=== PATIENT | female | born 1970 | race Caucasian/White ===

== ENCOUNTER 2018-06-11 19:37 | Inpatient (IN) | payer SELFPAY ==
--- NOTE | 2018-06-11 20:01 | ER Document Report ---
ED Medical Screen (RME) - General Chief Complaint: Abscess Stated Complaint: POSSIBLE ABSCESS Time Seen by Provider: 06/11/18 19:59 Mode of Arrival: Ambulatory Information source: Patient TRAVEL OUTSIDE OF THE [place] IN LAST 30 DAYS: No - HPI Patient complains to provider of: R arm swelling Onset: Other - Pt. with 2-3 day h/o R arm redness and swelling. Thinks she may have gotten bitten by an insect - Related Data Allergies/Adverse Reactions: No Known Allergies Allergy (Unverified 02/12/16 12:23) Past Medical History Musculoskeltal Medical History: Reports Hx Musculoskeletal Trauma - 3x left shoulder dislocation Traumatic Medical History: Reports: Hx Fractures - WRIST Past Surgical History: Reports: Hx Orthopedic Surgery - L wrist, Hx Tonsillectomy - Immunizations Immunizations up to date: Yes Hx Diphtheria, Pertussis, Tetanus Vaccination: Yes Physical Exam - Vital signs Vitals: Temp Pulse Resp BP Pulse Ox 98.7 F 124 H 20 111/78 99 06/11/18 19:47 06/11/18 19:47 06/11/18 19:47 06/11/18 19:47 06/11/18 19:47 Course - Vital Signs Vital signs: Temp Pulse Resp BP Pulse Ox 98.7 F 124 H 20 111/78 99 06/11/18 19:47 06/11/18 19:47 06/11/18 19:47 06/11/18 19:47 06/11/18 19:47
[2018-06-11] MEDS ORDERED: VANCOMYCIN HCL INJ 1000 MG VIAL IV ONE (21:10)
[2018-06-11] MEDS ORDERED: CEFTRIAXONE INJ 1000 MG VIAL IV ONE (21:10)
[2018-06-11] MEDS ORDERED: RINGERS SOLUTION,LACTATED 2,000 ML IV ONE (21:10)
[2018-06-11] MEDS ORDERED: KETAMINE HCL INJ 500 MG/10 ML VIAL IV ONE ×2 (21:13→22:55)
[2018-06-11] MEDS ORDERED: ONDANSETRON HCL INJ/PF 4 MG/2 ML SDV IV ONE (21:13)
--- NOTE | 2018-06-11 21:15 | ER Document Report ---
ED General - General Chief Complaint: Abscess Stated Complaint: POSSIBLE ABSCESS Time Seen by Provider: 06/11/18 19:59 Mode of Arrival: Ambulatory Notes: Patient is a 48-year-old female with a past history of chronic pain, chronic anxiety, presents with 4 days of progressively worsening pain and swelling to her right antecubital fossa with spreading erythema both distally approximately from the site. States that she leave the area started as a bug bite or something else and has been worsening since that time. She notes a severe, throbbing, constant pain to the area. Nothing improves the pain, touching the area dramatically worsens the pain. She has not seen her primary doctor regarding today's concerns. No history of similar symptoms in the past. Notes subjective fever at home but has not recorded a temperature. Denies IV drug use. TRAVEL OUTSIDE OF THE [place] IN LAST 30 DAYS: No - Related Data Allergies/Adverse Reactions: No Known Allergies Allergy (Unverified 02/12/16 12:23) Past Medical History - General Information source: Patient - Social History Smoking Status: Current Every Day Smoker Frequency of alcohol use: Rare Drug Abuse: Marijuana Lives with: Alone Family History: Reviewed & Not Pertinent Patient has suicidal ideation: No Patient has homicidal ideation: No Renal/ Medical History: Denies: Hx Peritoneal Dialysis Musculoskeletal Medical History: Reports Hx Musculoskeletal Trauma - 3x left shoulder dislocation Traumatic Medical History: Reports: Hx Fractures - WRIST Past Surgical History: Reports: Hx Orthopedic Surgery - L wrist, Hx Tonsillectomy - Immunizations Immunizations up to date: Yes Hx Diphtheria, Pertussis, Tetanus Vaccination: Yes Review of Systems - Review of Systems Notes: Constitutional: Negative for fever. HENT: Negative for sore throat. Eyes: Negative for visual changes. Cardiovascular: Negative for chest pain. Respiratory: Negative for shortness of breath. Gastrointestinal: Negative for abdominal pain, vomiting or diarrhea. Genitourinary: Negative for dysuria. Musculoskeletal: Negative for back pain. Skin: Positive for abscess and cellulitis of the right upper extremity Neurological: Negative for headaches, weakness or numbness. 10 point ROS negative except as marked above and in HPI. Physical Exam - Vital signs Vitals: Temp Pulse Resp BP Pulse Ox 98.7 F 124 H 20 111/78 99 06/11/18 19:47 06/11/18 19:47 06/11/18 19:47 06/11/18 19:47 06/11/18 19:47 Interpretation: Tachycardic Notes: PHYSICAL EXAMINATION: GENERAL: Well-appearing, well-nourished and in no acute distress. HEAD: Atraumatic, normocephalic. EYES: Pupils equal round and reactive to light, extraocular movements intact, sclera anicteric, conjunctiva are normal. ENT: nares patent, oropharynx clear without exudates. Moist mucous membranes. NECK: Normal range of motion, supple without lymphadenopathy LUNGS: Breath sounds clear to auscultation bilaterally and equal. No wheezes rales or rhonchi. HEART: Regular rate and rhythm without murmurs ABDOMEN: Soft, nontender, normoactive bowel sounds. No guarding, no rebound. No masses appreciated. EXTREMITIES: Normal range of motion, no pitting or edema. No cyanosis. NEUROLOGICAL: No focal neurological deficits. Moves all extremities spontaneously and on command. PSYCH: Normal mood, normal affect. SKIN: Warm, Dry, normal turgor, 2 x 3 cm abscess in the lateral right antecubital space with erythema covering the entirety of the right upper extremity Course - Re-evaluation Re-evalutation: 06/11/18 21:14 Patient presents with an enlarged abscess in her right antecubital fossa with an extensive cellulitis extending all the way up to her axilla and down to her wrist on the right side. Patient denies IV drug use although has excoriations all over her body, appears to have picking behaviors. Review of [place] controlled substance database does reveal the patient is prescribed 120 oxycodone 5 mg tablets and 90 alprazolam 0.5 mg tablets monthly from her doctor. The patient does meet sepsis criteria at time of presentation with tachycardia, leukocytosis and a clear source. She will undergo procedural sedation for incision and drainage of the abscess given the degree of edema and swelling which will make the procedure intolerable for the patient otherwise. Patient will be started on ceftriaxone, vancomycin, IV fluids. Require hospitalization given degree of cellulitis. 06/11/18 23:00 Patient has undergone incision and drainage which was extremely extensive, greater than 30 cc of purulent drainage was removed and packing was placed after copious irrigation. This was done under ketamine sedation and patient did tolerate the procedure well. I discussed this case with the hospitalist on-call who has accepted the patient. Lactate pending. - Vital Signs Vital signs: Temp Pulse Resp BP Pulse Ox 98.7 F 124 H 29 H 141/78 H 100 06/11/18 19:47 06/11/18 19:47 06/11/18 23:01 06/11/18 23:00 06/11/18 23:01 - Laboratory Result Diagrams: 06/11/18 20:51 06/11/18 20:51 Laboratory results interpreted by me: 06/11/18 06/11/18 20:51 20:51 WBC 22.6 H Hgb 16.0 H Seg Neuts % (Manual) 86 H Lymphocytes % (Manual) 10 L Abs Neuts (Manual) 19.4 H Potassium 2.9 L* Procedures - Conscious Sedation Conscious sedation Time started: 22:33 Time completed: 22:57 Consent obtained: Yes Indication: Incision and drainage of large right upper extremity abscess Prior complications: Procedural sedation Normal healthy pt.: P1. - ASA Classification Airway Evaluation: Normal anatomy Mallampati Classification: Class 1 Used during procedure: Suction available, IV access obtained, Pulse ox on pt., classroom monitor on pt. Medications administered: Ketamine Reversal agents: None I personally performed/intraservice time: Sedation, Procedure, 30 min or less Complications: No - Incision and Drainage Right Arm Type: Complex, Single Anesthetic type: 1% Lidocaine mL's of anesthetic: 5 Blade size: 11 I&D procedure: Chlorprep applied Incision Method: Incision made by scalpel Amount/type of drainage: 30 cc purulent drainage Discharge - Discharge Clinical Impression: Cellulitis of right upper extremity, Abscess of right arm, Hypokalemia Sepsis Qualifiers: Sepsis type: sepsis due to unspecified organism Qualified Code(s): A41.9 - Sepsis, unspecified organism Condition: Fair Disposition: ADMITTED INPATIENT Admitting Provider: Hospitalist Unit Admitted: Telemetry
[2018-06-11 21:16] LABS: HEMATOCRIT 45.9 % (36.0-47.0); MEAN CORPUSCULAR HEMOGLOBIN 30.3 pg (27.0-33.4); MEAN CORPUSCULAR HGB CONC 34.8 g/dL (32.0-36.0); MEAN CORPUSCULAR VOLUME 87 fl (80-97); PLATELET COUNT 345 10^3/uL (150-450); RED BLOOD COUNT 5.27 10^6/uL (3.72-5.28); RED CELL DISTRIBUTION WIDTH 12.7 % (11.5-14.0); WHITE BLOOD COUNT 22.6 10^3/uL (4.0-10.5)
[2018-06-11 21:18] LABS: ALANINE AMINOTRANSFERASE 44 U/L (9-52); ALBUMIN 4.4 g/dL (3.5-5.0); ALKALINE PHOSPHATASE 116 U/L (38-126); ANION GAP 12 (5-19); ASPARTATE AMINO TRANSFERASE 30 U/L (14-36); BILIRUBIN,DIRECT 0.2 mg/dL (0.0-0.4); BILIRUBIN,TOTAL 0.5 mg/dL (0.2-1.3); BLOOD UREA NITROGEN 10 mg/dL (7-20); CALCIUM 9.9 mg/dL (8.4-10.2); CARBON DIOXIDE 24 mmol/L (22-30); CHLORIDE 105 mmol/L (98-107); GLUCOSE 105 mg/dL (75-110); SODIUM 140.8 mmol/L (137-145); TOTAL PROTEIN 7.6 g/dL (6.3-8.2)
[2018-06-11 21:24] LABS: POTASSIUM 2.9 mmol/L (3.6-5.0)
[2018-06-11 21:42] LABS: ABSOLUTE LYMPHOCYTES# (MANUAL) 2.3 10^3/uL (0.5-4.7); ABSOLUTE MONOCYTES # (MANUAL) 0.9 10^3/uL (0.1-1.4); ABSOLUTE NEUTROPHILS# (MANUAL) 19.4 10^3/uL (1.7-8.2); BASOPHILS % (MANUAL) 0 % (0-2); EOSINOPHILS % (MANUAL) 0 % (0-6); LYMPHOCYTES % (MANUAL) 10 % (13-45); MONOCYTES % (MANUAL) 4 % (3-13); SEGMENTED NEUTROPHILS % (MAN) 86 % (42-78); TOTAL CELLS COUNTED 100
[2018-06-11 21:44] LABS: PLATELET COMMENT ADEQUATE; RBC MORPHOLOGY COMMENT NORMO-CYTIC/CHROMIC; TOXIC GRANULATION SLIGHT; TOXIC VACUOLATION PRESENT
[2018-06-11] MEDS ORDERED: POTASSI CL 20 MEQ/50 ML RIDER 20 MEQ/50 ML RTUPB IV ONE (23:04)
[2018-06-11] MEDS ORDERED: ONDANSETRON HCL INJ/PF 4 MG/2 ML SDV IV PRN (23:31)
[2018-06-11] MEDS ORDERED: ONDANSETRON 4 MG TAB.RAPDIS PO PRN (23:31)
[2018-06-11] MEDS ORDERED: MAG HYDROX/AL HYDROX/SIMETH SUSP 30 ML UDCUP PO PRN (23:31)
[2018-06-11] MEDS ORDERED: MAGNESIUM HYDROXIDE SUSP 30 ML UDCUP PO PRN (23:31)
[2018-06-11] MEDS ORDERED: ACETAMINOPHEN 325 MG TABLET PO PRN (23:39)
[2018-06-11] MEDS ORDERED: ALBUTEROL SULFATE 0.083% NEB 2.5 MG/3 ML AMPUL NEB PRN (23:39)
[2018-06-11] MEDS ORDERED: NALBUPHINE HCL INJ 10 MG/1 ML AMPULE IV PRN (23:39)
[2018-06-11] MEDS ORDERED: IBUPROFEN 800 MG TABLET PO PRN (23:39)
[2018-06-11] MEDS ORDERED: NICOTINE 21 MG/24 HR PATCH.TD24 TD PRN (23:39)
[2018-06-11] MEDS: MORPHINE SULFATE 10 MG/ML INJ IV PRN (23:49)
[2018-06-11] MEDS: MAGNESIUM SULFATE/D5W 1 GM/100 ML RTUPB IV SCH (23:49)
[2018-06-12] MEDS ORDERED: FAMOTIDINE 20 MG TABLET PO ONE (00:15)
[2018-06-12] MEDS ORDERED: POTASSI CL 20 MEQ/50 ML RIDER 20 MEQ/50 ML RTUPB IV ONE (00:15)
[2018-06-12] MEDS ORDERED: HEPARIN SOD (PORCINE) 5,000 UNIT/ML 1 ML SYRINGE SUBCUT ONE (00:15)
[2018-06-12] MEDS: MAGNESIUM SULFATE/D5W 1 GM/100 ML RTUPB IV SCH (00:20)
[2018-06-12] MEDS ORDERED: ERTAPENEM SODIUM INJ 1 GM VIAL IV ONE (00:30)
[2018-06-12 00:58] LABS: APPEARANCE,URINE CLEAR; BILIRUBIN,URINE NEGATIVE (NEGATIVE); COLOR,URINE YELLOW; GLUCOSE, URINE 50 mg/dL (NEGATIVE); KETONES,URINE NEGATIVE (NEGATIVE); LEUKOCYTE ESTERASE,URINE NEGATIVE (NEGATIVE); NITRITE,URINE NEGATIVE (NEGATIVE); PROTEIN,URINE NEGATIVE (NEGATIVE); URINE SPECIFIC GRAVITY 1.011; UROBILINOGEN,URINE NEGATIVE mg/dL (<2.0)
[2018-06-12 01:15] LABS: URINE AMPHETAMINES SCREEN UNCONFIRMED POSITIVE; URINE BARBITURATES SCREEN NEGATIVE; URINE BENZODIAZEPINES SCREEN NEGATIVE; URINE COCAINE SCREEN NEGATIVE; URINE MARIJUANA (THC) SCREEN UNCONFIRMED POSITIVE; URINE METHADONE SCREEN NEGATIVE; URINE PHENCYCLIDINE SCREEN NEGATIVE
[2018-06-12] MEDS: MORPHINE SULFATE 10 MG/ML INJ IV PRN ×7 (01:55→23:17)
--- NOTE | 2018-06-12 02:30 | PDOC H&P ---
History of Present Illness Admission Date/PCP: 06/11/18 23:09 Patient complains of: Right arm with painful swelling and abscess History of Present Illness: DRAKE JOEL is a 48 year old female who presents the emergency room with a 4-day history of gradually worsening swelling and pain in her right antecubital fossa and right upper extremity. She explains that she "must have had an insect bite or something that got infected" in her right antecubital space (she specifically denies IV drug use) and it has gradually gotten worse over time. The constant throbbing nonradiating pain is now severe and markedly worsened by movement of the area such as bending of the elbow and any pressure or touch to the area. She denies prior similar episodes and has not identified any other aggravating or ameliorating factors for her pain. In the emergency room she was found to have a severe cellulitis and abscess of the right antecubital space requiring incision and drainage with packing. Antibiotic therapy was initiated with IV Rocephin and vancomycin and the patient was subsequently admitted to the hospital for further evaluation and treatment. Past Medical History Cardiac Medical History: Denies: Coronary Artery Disease, DVT, Hyperlipidema, Hypertension, Pulmonary Embolism Pulmonary Medical History: Denies: Asthma, Chronic Obstructive Pulmonary Disease (COPD) EENT Medical History: Reports: None Neurological Medical History: Denies: Multiple Sclerosis, Seizures Endocrine Medical History: Denies: Diabetes Mellitus Type 1, Hyperthyroidism, Hypothyroidism Renal/ Medical History: Denies: Chronic Kidney Disease, Nephrolithiasis Malignancy Medical History: Reports: None GI Medical History: Denies: Cirrhosis, Hepatitis Musculoskeltal Medical History: Reports: Other - Chronic pain syndrome Denies: Gout Skin Medical History: Denies: Eczema, Psoriasis Psychiatric Medical History: Reports: Substance Abuse, Tobacco Dependency Denies: Alcohol Dependency Traumatic Medical History: Reports: None Hematology: Denies: Anemia, Bleeding Tendencies Infectious Medical History: Reports: None Past Surgical History Past Surgical History: Reports: Orthopedic Surgery - L wrist, Tonsillectomy Social History Information Source: Patient Lives with: Alone Smoking Status: Current Every Day Smoker Frequency of Alcohol Use: Occasional Hx Recreational Drug Use: Yes Drugs: Other - Methamphetamine use occasionally but none recent. Hx Prescription Drug Abuse: No - Advance Directive Resuscitation Status: Full Code Surrogate healthcare decision maker:: Allyssa Tse Family History Family History: CAD, Malignancy Parental Family History Reviewed: Yes Children Family History Reviewed: No Sibling(s) Family History Reviewed.: Yes Medication/Allergy Home Medications: Amoxicillin Trihydrate [Amoxil 500 mg Capsule] 500 mg PO TID #30 cap 11/24/15 Ibuprofen [Motrin 800 Mg Tablet] 800 mg PO TID PRN #30 tablet 11/24/15 Oxycodone HCl/Acetaminophen [Percocet 5-325 mg Tablet] 1 tab PO ASDIR PRN #15 tablet 02/12/16 Allergies/Adverse Reactions: No Known Allergies Allergy (Unverified 02/12/16 12:23) Review of Systems Constitutional: ABSENT: chills, fever(s) Eyes: ABSENT: visual disturbances, other - Ocular pain Ears: ABSENT: hearing changes, other - Ear pain Nose, Mouth, and Throat: ABSENT: mouth pain, sore throat Cardiovascular: ABSENT: chest pain, dyspnea on exertion, palpitations Respiratory: ABSENT: cough, dyspnea Gastrointestinal: ABSENT: abdominal pain, constipation, diarrhea, nausea, vomiting Genitourinary: ABSENT: dysuria, hematuria Musculoskeletal: PRESENT: other - Chronic pain syndrome. ABSENT: deformity, muscle weakness Integumentary: PRESENT: other - Cellulitis and abscess with erythema edema and induration of the entire right upper extremity from the wrist to the shoulder/axilla with a large abscess located in the antecubital space.. ABSENT: pruritus, rash Neurological: ABSENT: confusion, convulsions, memory loss, tremor(s) Psychiatric: ABSENT: anxiety, depression Endocrine: ABSENT: cold intolerance, heat intolerance Hematologic/Lymphatic: ABSENT: easy bleeding, easy bruising Physical Exam Vital Signs: Temp Pulse Resp BP Pulse Ox 98.7 F 124 H 18 125/94 H 100 06/11/18 19:47 06/11/18 19:47 06/11/18 23:06 06/11/18 23:06 06/11/18 23:06 Intake & Output 06/09/18 06/10/18 06/11/18 23:59 23:59 23:59 Weight 61.1 kg General appearance: PRESENT: no acute distress, cooperative Head exam: PRESENT: atraumatic Eye exam: PRESENT: conjunctiva pink, EOMI. ABSENT: scleral icterus Ear exam: PRESENT: normal external ear exam. ABSENT: bleeding, drainage Mouth exam: PRESENT: dry mucosa, neck supple Neck exam: ABSENT: JVD, thyromegaly, tracheal deviation Respiratory exam: PRESENT: clear to auscultation eladio, symmetrical, unlabored Cardiovascular exam: PRESENT: RRR. ABSENT: clicks, gallop, rubs Pulses: PRESENT: normal radial pulses, normal dorsalis pedis pul GI/Abdominal exam: PRESENT: normal bowel sounds, soft Rectal exam: PRESENT: deferred Extremities exam: PRESENT: tenderness - Right upper extremity, other - Cellulitis and abscess with erythema, edema and induration of the entire right upper extremity from the wrist to the shoulder/axilla with a large abscess located in the antecubital space.. ABSENT: joint swelling, pedal edema Musculoskeletal exam: PRESENT: ambulatory. ABSENT: deformity, dislocation Neurological exam: PRESENT: alert, oriented to person, oriented to place, oriented to time, oriented to situation, CN II-XII grossly intact. ABSENT: motor sensory deficit Psychiatric exam: PRESENT: appropriate affect, normal mood Skin exam: PRESENT: dry, warm, other - Cellulitis and abscess with erythema, edema and induration of the entire right upper extremity from the wrist to the shoulder/axilla with a large abscess located in the antecubital space.. ABSENT: jaundice, urticaria Additional comments: Small "pickers" skin abrasions noted on face and extremities. Results Laboratory Results: 06/11/18 20:51 06/11/18 20:51 06/11/18 06/11/18 06/11/18 20:51 20:51 20:51 WBC 22.6 H RBC 5.27 Hgb 16.0 H Hct 45.9 MCV 87 MCH 30.3 MCHC 34.8 RDW 12.7 Plt Count 345 Seg Neutrophils % Not Reportable Lymphocytes % Not Reportable Monocytes % Not Reportable Eosinophils % Not Reportable Basophils % Not Reportable Absolute Neutrophils Not Reportable Absolute Lymphocytes Not Reportable Absolute Monocytes Not Reportable Absolute Eosinophils Not Reportable Absolute Basophils Not Reportable Sodium 140.8 Potassium 2.9 L* Chloride 105 Carbon Dioxide 24 Anion Gap 12 BUN 10 Creatinine 0.54 Est GFR ( Amer) > 60 Est GFR (Non-Af Amer) > 60 Glucose 105 Calcium 9.9 Magnesium 2.3 Total Bilirubin 0.5 AST 30 ALT 44 Alkaline Phosphatase 116 Total Protein 7.6 Albumin 4.4 Assessment & Plan - Diagnosis (1) Cellulitis of right upper extremity Is this a current diagnosis for this admission?: Yes Plan: Patient be treated with IV antibiotics utilizing Invanz and vancomycin initially pending culture and sensitivity results from wound culture and blood cultures. Patient will receive Nubain 10 mg IV every 3 hours as needed pain. (2) SIRS (systemic inflammatory response syndrome) Is this a current diagnosis for this admission?: Yes Plan: Patient was noted to have a mild tachypnea and tachycardia in the emergency room. She has not noted to be febrile nor was she hypotensive. It is quite likely that anxiety played a significant role in her tachycardia and tachypnea but she will be observed for possible sepsis since she did have a significantly elevated white blood count and obvious source of infection. (3) Abscess of antecubital fossa Is this a current diagnosis for this admission?: Yes Plan: The abscess of the right antecubital fossa has been incised and drained in the emergency room. A wound packing is been placed. The remainder treatment will be with antibiotic therapy for the overall cellulitis. Her daytime hospitalist may consider a surgical consultation to recommend wound care if necessary. (4) Hypokalemia Is this a current diagnosis for this admission?: Yes Plan: Patient's serum potassium will be repleted with K riders and oral potassium as appropriate. (5) Tobacco use disorder, severe, dependence Is this a current diagnosis for this admission?: Yes Plan: Smoking cessation has been advised and counseling has been given. A nicotine replacement patch is available for the patient's use. - Time Time Spent: 30 to 50 Minutes Critical Time spent with patient: Less than 15 minutes Smoking Cessation Education: 3 to 10 minutes Medications reviewed and adjusted accordingly: Yes - Inpatient Certification Based on my medical assessment, after consideration of the patient's comorbidities, presenting symptoms, or acuity I expect that the services needed warrant INPATIENT care.: Yes I certify that my determination is in accordance with my understanding of Medicare's requirements for reasonable and necessary INPATIENT services [42 CFR 412.3e].: Yes Medical Necessity: Need for IV Antibiotics, Risk of Complication if Not Cared For in Hospital
[2018-06-12] MEDS: HEPARIN SOD (PORCINE) 5,000 UNIT/ML 1 ML SYRINGE SUBCUT SCH ×3 (06:25→22:05)
[2018-06-12 07:12] LABS: ABSOLUTE BASOPHILS # (AUTO) 0.1 10^3/uL (0.0-0.2); ABSOLUTE EOSINOPHILS # (AUTO) 0.5 10^3/uL (0.0-0.6); ABSOLUTE LYMPHOCYTES (AUTO) 2.4 10^3/uL (0.5-4.7); ABSOLUTE MONOCYTES (AUTO) 1.3 10^3/uL (0.1-1.4); BASOPHILS % (AUTO) 0.5 % (0-2); EOSINOPHILS % (AUTO) 2.6 % (0-6); LYMPHOCYTES % (AUTO) 13.2 % (13-45); MEAN CORPUSCULAR HEMOGLOBIN 29.9 pg (27.0-33.4); MEAN CORPUSCULAR HGB CONC 34.5 g/dL (32.0-36.0); MEAN CORPUSCULAR VOLUME 87 fl (80-97); MONOCYTES % (AUTO) 7.3 % (3-13); PLATELET COUNT 293 10^3/uL (150-450); RED BLOOD COUNT 4.15 10^6/uL (3.72-5.28); RED CELL DISTRIBUTION WIDTH 12.4 % (11.5-14.0); SEGMENTED NEUTROPHILS % (AUTO) 76.4 % (42-78); TOTAL CELLS COUNTED % (AUTO) 100 %; WHITE BLOOD COUNT 18.3 10^3/uL (4.0-10.5)
[2018-06-12 07:15] LABS: HEMOGLOBIN 12.4 g/dL (12.0-15.5)
[2018-06-12 07:25] LABS: ANION GAP 7 (5-19); BLOOD UREA NITROGEN 7 mg/dL (7-20); CALCIUM 8.1 mg/dL (8.4-10.2); CARBON DIOXIDE 24 mmol/L (22-30); CHLORIDE 106 mmol/L (98-107); CHOLESTEROL 110.12 mg/dL (0-200); GLUCOSE 103 mg/dL (75-110); SODIUM 137.1 mmol/L (137-145); TRIGLYCERIDES 75 mg/dL (<150)
[2018-06-12 07:35] LABS: DIRECT LDL 77 mg/dL (<100)
[2018-06-12 07:41] LABS: FREE T3 4.36 pg/mL (2.77-5.27); FREE T4 (FREE THYROXINE) 1.65 ng/dL (0.78-2.19)
[2018-06-12 07:46] LABS: POTASSIUM 3.9 mmol/L (3.6-5.0)
[2018-06-12 07:55] LABS: THYROID STIMULATING HORMONE 4.64 uIU/mL (0.47-4.68)
[2018-06-12] MEDS ORDERED: VANCOMYCIN HCL INJ 1000 MG VIAL IV SCH (10:00)
[2018-06-12] MEDS: FAMOTIDINE 20 MG TABLET PO SCH ×2 (10:14→22:05)
[2018-06-12] MEDS: DOCUSATE SODIUM 100 MG CAPSULE PO SCH ×2 (10:15→18:41)
--- NOTE | 2018-06-12 15:26 | PDOC PROGRESS REPORT ---
Subjective Progress Note for:: 06/12/18 Subjective:: Recent admitted with right arm pain, sweating and right abscess. She is currently on IV Rocephin and vancomycin. Patient received ceftriaxone as well as Invanz in the emergency room. White count has come down from about 20,000. She is status post incision and drainage with packing. Patient states that she feels better and feels her hand is improved swelling is improved. She denies a history of IVDA. Reason For Visit: CELLULITIS WITH ABSCESS RIGHT UPPER EXTREMITY Physical Exam Vital Signs: Temp Pulse Resp BP Pulse Ox 98.7 F 88 14 97/67 L 98 06/11/18 19:47 06/12/18 11:58 06/12/18 11:58 06/12/18 10:00 06/12/18 11:58 Intake & Output 06/11/18 06/12/18 06/13/18 06:59 06:59 06:59 Intake Total 2202 Balance 2202 Weight 61.1 kg General appearance: PRESENT: no acute distress, well-developed, well-nourished Head exam: PRESENT: atraumatic, normocephalic Eye exam: PRESENT: conjunctiva pink, EOMI, PERRLA. ABSENT: scleral icterus Ear exam: PRESENT: normal external ear exam Mouth exam: PRESENT: moist, tongue midline Neck exam: ABSENT: carotid bruit, JVD, lymphadenopathy, thyromegaly Respiratory exam: PRESENT: clear to auscultation eladio. ABSENT: rales, rhonchi, wheezes Cardiovascular exam: PRESENT: RRR. ABSENT: diastolic murmur, rubs, systolic murmur Pulses: PRESENT: normal dorsalis pedis pul Vascular exam: PRESENT: normal capillary refill GI/Abdominal exam: PRESENT: normal bowel sounds, soft. ABSENT: distended, guarding, mass, organolmegaly, rebound, tenderness Rectal exam: PRESENT: deferred Extremities exam: PRESENT: full ROM. ABSENT: calf tenderness, clubbing, pedal edema Musculoskeletal exam: PRESENT: other - Right upper extremity with swelling, cellulitis, erythema and dressing. Neurological exam: PRESENT: alert, awake, oriented to person, oriented to place, oriented to time, oriented to situation, CN II-XII grossly intact. ABSENT: motor sensory deficit Psychiatric exam: PRESENT: appropriate affect, normal mood. ABSENT: homicidal ideation, suicidal ideation Skin exam: PRESENT: dry, intact, warm. ABSENT: cyanosis, rash Results Laboratory Results: 06/12/18 06:50 06/12/18 06:50 06/11/18 06/11/18 06/11/18 20:51 20:51 20:51 WBC 22.6 H RBC 5.27 Hgb 16.0 H Hct 45.9 MCV 87 MCH 30.3 MCHC 34.8 RDW 12.7 Plt Count 345 Seg Neutrophils % Not Reportable Lymphocytes % Not Reportable Monocytes % Not Reportable Eosinophils % Not Reportable Basophils % Not Reportable Absolute Neutrophils Not Reportable Absolute Lymphocytes Not Reportable Absolute Monocytes Not Reportable Absolute Eosinophils Not Reportable Absolute Basophils Not Reportable Sodium 140.8 Potassium 2.9 L* Chloride 105 Carbon Dioxide 24 Anion Gap 12 BUN 10 Creatinine 0.54 Est GFR ( Amer) > 60 Est GFR (Non-Af Amer) > 60 Glucose 105 Lactic Acid Calcium 9.9 Magnesium 2.3 Total Bilirubin 0.5 AST 30 ALT 44 Alkaline Phosphatase 116 Total Protein 7.6 Albumin 4.4 Triglycerides Cholesterol LDL Cholesterol Direct VLDL Cholesterol HDL Cholesterol TSH Free T4 Free T3 pg/mL Urine Color Urine Appearance Urine pH Ur Specific [place] Urine Protein Urine Glucose (UA) Urine Ketones Urine Blood Urine Nitrite Ur Leukocyte Esterase Urine WBC (Auto) Urine RBC (Auto) 06/11/18 06/12/18 06/12/18 23:33 00:44 06:50 WBC 18.3 H RBC 4.15 Hgb 12.4 D Hct 36.0 MCV 87 MCH 29.9 MCHC 34.5 RDW 12.4 Plt Count 293 Seg Neutrophils % 76.4 Lymphocytes % 13.2 Monocytes % 7.3 Eosinophils % 2.6 Basophils % 0.5 Absolute Neutrophils 14.0 H Absolute Lymphocytes 2.4 Absolute Monocytes 1.3 Absolute Eosinophils 0.5 Absolute Basophils 0.1 Sodium Potassium Chloride Carbon Dioxide Anion Gap BUN Creatinine Est GFR ( Amer) Est GFR (Non-Af Amer) Glucose Lactic Acid 1.9 Calcium Magnesium Total Bilirubin AST ALT Alkaline Phosphatase Total Protein Albumin Triglycerides Cholesterol LDL Cholesterol Direct VLDL Cholesterol HDL Cholesterol TSH Free T4 Free T3 pg/mL Urine Color YELLOW Urine Appearance CLEAR Urine pH 5.0 Ur Specific [place] 1.011 Urine Protein NEGATIVE Urine Glucose (UA) 50 H Urine Ketones NEGATIVE Urine Blood NEGATIVE Urine Nitrite NEGATIVE Ur Leukocyte Esterase NEGATIVE Urine WBC (Auto) 1 Urine RBC (Auto) 1 01/14/19 01/14/19 06:50 06:50 WBC RBC Hgb Hct MCV MCH MCHC RDW Plt Count Seg Neutrophils % Lymphocytes % Monocytes % Eosinophils % Basophils % Absolute Neutrophils Absolute Lymphocytes Absolute Monocytes Absolute Eosinophils Absolute Basophils Sodium 137.1 Potassium 3.9 D Chloride 106 Carbon Dioxide 24 Anion Gap 7 BUN 7 Creatinine 0.44 L Est GFR ( Amer) > 60 Est GFR (Non-Af Amer) > 60 Glucose 103 Lactic Acid Calcium 8.1 L Magnesium 2.4 H Total Bilirubin AST ALT Alkaline Phosphatase Total Protein Albumin Triglycerides 75 Cholesterol 110.12 LDL Cholesterol Direct 77 VLDL Cholesterol 15.0 HDL Cholesterol 26 L TSH 4.64 Free T4 1.65 Free T3 pg/mL 4.36 Urine Color Urine Appearance Urine pH Ur Specific [place] Urine Protein Urine Glucose (UA) Urine Ketones Urine Blood Urine Nitrite Ur Leukocyte Esterase Urine WBC (Auto) Urine RBC (Auto) Assessment & Plan - Diagnosis (1) Abscess of antecubital fossa Is this a current diagnosis for this admission?: Yes Plan: We will obtain a sonogram to further evaluate this abscess as patient says swelling is pretty extensive. Follow-up for consultation if needed (2) SIRS (systemic inflammatory response syndrome) Is this a current diagnosis for this admission?: Yes Plan: This patient presented with tachycardia, tachypnea and the source of infection of the severe cellulitis as well as leukocytosis. She may well have an early sepsis (4) Hypokalemia Is this a current diagnosis for this admission?: Yes Plan: Corrected - Time Time Spent with patient: 15-24 minutes Medications reviewed and adjusted accordingly: Yes Anticipated discharge: Home Within: within 72 hours - Inpatient Certification Based on my medical assessment, after consideration of the patient's comorbidities, presenting symptoms, or acuity I expect that the services needed warrant INPATIENT care.: Yes Medical Necessity: Need for IV Antibiotics
--- NOTE | 2018-06-12 17:38 | RADIOLOGY REPORT (SQ) ---
EXAM DESCRIPTION: U/S EXTREMITY NONVASCULAR COMP COMPLETED DATE/TIME: 06/12/2018 5:17 pm REASON FOR STUDY: SWELLING RT ARM, EVAL FOR ABSCESS COMPARISON: None. TECHNIQUE: Sonographic imaging is performed in the antecubital fossa clear LIMITATIONS: None. FINDINGS: Subcutaneous edema is present. There is a 3.6 cm somewhat complex area in the antecubital fossa. IMPRESSION: Cellulitis. Complex phlegmon in the antecubital fossa. TECHNICAL DOCUMENTATION: JOB ID: [id number] [employer]- All Rights Reserved Reading location - IP/workstation name: [email or web address]
[2018-06-12] MEDS: VANCOMYCIN HCL 750 MG in DEXTROSE 5%-WATER 250 ML IV SCH (18:42)
[2018-06-12] MEDS ORDERED: CEFTRIAXONE 2 GM/D5W RTU 2 GM/50 ML RTUPB IV ONE (22:03)
[2018-06-12] MEDS: CEFTRIAXONE 2 GM/D5W RTU 2 GM/50 ML RTUPB IV SCH (22:06)
[2018-06-13] MEDS: VANCOMYCIN HCL 750 MG in DEXTROSE 5%-WATER 250 ML IV SCH ×3 (02:54→18:20)
[2018-06-13] MEDS: MORPHINE SULFATE 10 MG/ML INJ IV PRN ×4 (04:50→20:57)
[2018-06-13] MEDS: HEPARIN SOD (PORCINE) 5,000 UNIT/ML 1 ML SYRINGE SUBCUT SCH ×3 (05:24→23:10)
[2018-06-13 05:56] LABS: ABSOLUTE BASOPHILS # (AUTO) 0.1 10^3/uL (0.0-0.2); ABSOLUTE EOSINOPHILS # (AUTO) 0.5 10^3/uL (0.0-0.6); ABSOLUTE LYMPHOCYTES (AUTO) 2.4 10^3/uL (0.5-4.7); ABSOLUTE MONOCYTES (AUTO) 0.8 10^3/uL (0.1-1.4); ABSOLUTE NEUT (AUTO) 5.2 10^3/uL (1.7-8.2); EOSINOPHILS % (AUTO) 5.8 % (0-6); HEMATOCRIT 35.6 % (36.0-47.0); HEMOGLOBIN 12.2 g/dL (12.0-15.5); LYMPHOCYTES % (AUTO) 26.8 % (13-45); MEAN CORPUSCULAR HGB CONC 34.2 g/dL (32.0-36.0); MEAN CORPUSCULAR VOLUME 88 fl (80-97); MONOCYTES % (AUTO) 8.6 % (3-13); PLATELET COUNT 325 10^3/uL (150-450); RED BLOOD COUNT 4.06 10^6/uL (3.72-5.28); RED CELL DISTRIBUTION WIDTH 12.4 % (11.5-14.0); SEGMENTED NEUTROPHILS % (AUTO) 57.8 % (42-78); TOTAL CELLS COUNTED % (AUTO) 100 %; WHITE BLOOD COUNT 8.9 10^3/uL (4.0-10.5)
[2018-06-13 06:21] LABS: BLOOD UREA NITROGEN 6 mg/dL (7-20); CALCIUM 8.4 mg/dL (8.4-10.2); CARBON DIOXIDE 25 mmol/L (22-30); CHLORIDE 109 mmol/L (98-107); GLUCOSE 92 mg/dL (75-110); POTASSIUM 3.8 mmol/L (3.6-5.0)
[2018-06-13 06:26] LABS: ANION GAP 5 (5-19); SODIUM 138.5 mmol/L (137-145)
[2018-06-13] MEDS: CEFTRIAXONE 2 GM/D5W RTU 2 GM/50 ML RTUPB IV SCH (10:13)
[2018-06-13] MEDS: DOCUSATE SODIUM 100 MG CAPSULE PO SCH ×2 (10:13→17:39)
[2018-06-13] MEDS: FAMOTIDINE 20 MG TABLET PO SCH ×2 (10:13→23:10)
--- NOTE | 2018-06-13 11:42 | PDOC CONSULTATION ---
Consultation Consult Date: 06/13/18 - 1130am History of Present Illness Admission Date/PCP: 06/11/18 23:09 History of Present Illness: DRAKE JOEL is a 48 year old female presented to er yesterday with rt antecubital arm abscess was i and d in er this am still c/o pain and swelling and drainage of pus + leukocytosis Past Medical History Cardiac Medical History: Denies: Coronary Artery Disease, DVT, Hyperlipidema, Hypertension, Pulmonary Embolism Pulmonary Medical History: Denies: Asthma, Chronic Obstructive Pulmonary Disease (COPD) EENT Medical History: Reports: None Neurological Medical History: Denies: Multiple Sclerosis, Seizures Endocrine Medical History: Denies: Diabetes Mellitus Type 1, Hyperthyroidism, Hypothyroidism Renal/ Medical History: Denies: Chronic Kidney Disease, Nephrolithiasis Malignancy Medical History: Reports: None GI Medical History: Denies: Cirrhosis, Hepatitis Musculoskeltal Medical History: Reports: Other - Chronic pain syndrome Denies: Gout Skin Medical History: Denies: Eczema, Psoriasis Psychiatric Medical History: Reports: Substance Abuse, Tobacco Dependency Denies: Alcohol Dependency Traumatic Medical History: Reports: None Hematology: Denies: Anemia, Bleeding Tendencies Infectious Medical History: Reports: None Past Surgical History Past Surgical History: Reports: Orthopedic Surgery - L wrist, Tonsillectomy Social History Lives with: Alone Smoking Status: Current Every Day Smoker Frequency of Alcohol Use: Occasional Hx Recreational Drug Use: Yes Drugs: Marijuana Hx Prescription Drug Abuse: No - Advance Directive Resuscitation Status: Full Code Family History Family History: CAD, Malignancy Parental Family History Reviewed: No Children Family History Reviewed: No Sibling(s) Family History Reviewed.: No Medication/Allergy Home Medications: Alprazolam [Xanax 0.5 mg Tablet] 0.5 mg PO TIDP PRN 06/12/18 Oxycodone HCl [Roxicodone] 5 mg PO QIDP PRN 06/12/18 Allergies/Adverse Reactions: No Known Allergies Allergy (Unverified 02/12/16 12:23) Physical Exam Vital Signs: Temp Pulse Resp BP Pulse Ox 98.5 F 84 16 87/49 L 89 L 06/13/18 07:57 06/13/18 07:57 06/13/18 07:57 06/13/18 07:57 06/13/18 07:57 Intake & Output 06/12/18 06/13/18 06/14/18 06:59 06:59 06:59 Intake Total 2202 550 Balance 2202 550 Weight 61.1 kg 68.9 kg General appearance: PRESENT: disheveled Head exam: PRESENT: atraumatic Eye exam: PRESENT: conjunctiva pink Mouth exam: PRESENT: moist Teeth exam: PRESENT: poor dentation Neck exam: PRESENT: full ROM Respiratory exam: PRESENT: clear to auscultation eladio Cardiovascular exam: PRESENT: RRR Pulses: PRESENT: normal radial pulses Vascular exam: PRESENT: normal capillary refill GI/Abdominal exam: PRESENT: soft Rectal exam: PRESENT: deferred Extremities exam: PRESENT: other - rt upper extremitiy markedly swollen iwth stellate incision in antecubital fossa,iwth drainage of copious pus Neurological exam: PRESENT: alert Skin exam: PRESENT: dry Results Laboratory Results: 06/13/18 05:09 06/13/18 05:09 06/13/18 06/13/18 05:09 05:09 WBC 8.9 RBC 4.06 Hgb 12.2 Hct 35.6 L MCV 88 MCH 30.0 MCHC 34.2 RDW 12.4 Plt Count 325 Seg Neutrophils % 57.8 Lymphocytes % 26.8 Monocytes % 8.6 Eosinophils % 5.8 Basophils % 1.0 Absolute Neutrophils 5.2 Absolute Lymphocytes 2.4 Absolute Monocytes 0.8 Absolute Eosinophils 0.5 Absolute Basophils 0.1 Sodium 138.5 Potassium 3.8 Chloride 109 H Carbon Dioxide 25 Anion Gap 5 BUN 6 L Creatinine 0.46 L Est GFR ( Amer) > 60 Est GFR (Non-Af Amer) > 60 Glucose 92 Calcium 8.4 Magnesium 2.4 H Impressions: Extremity Ultrasound 06/12/18 00:00 IMPRESSION: Cellulitis. Complex phlegmon in the antecubital fossa. Assessment & Plan - Inpatient Certification Medical Necessity: Failure to Improve With Outpatient Therapy, Need for IV Antibiotics - Plan Summary Plan Summary: plan for operative debridement and drainage of antecubital abscess risks and benifits of procedure discussed including injury to adjacent nerves, vessels, bleeding reqirement for additional surgery use of rt arm may be impared after surgery risk of from mi, stroke, sepsis has beed discussed and she agrees to proceed.
[2018-06-13 18:19] LABS: VANCOMYCIN,TROUGH 8.8 ug/mL (5.0-20.0)
[2018-06-13] MEDS ORDERED: PROPOFOL INJ 200 MG/20 ML VIAL IV ONE (21:35)
[2018-06-13] MEDS ORDERED: MIDAZOLAM 2 MG/2 ML INJ ONE (21:35)
[2018-06-13] MEDS ORDERED: FENTANYL CITRATE INJ/PF 100 MCG/2 ML AMPUL ONE (21:35)
[2018-06-13] MEDS ORDERED: DEXMEDETOMIDINE INJ 80 MCG/20 ML VIAL IV ONE (22:13)
[2018-06-13] MEDS ORDERED: DIPHENHYDRAMINE HCL 50 MG/ML VIAL IV PRN (22:43)
[2018-06-13] MEDS ORDERED: FENTANYL CITRATE INJ/PF 100 MCG/2 ML AMPUL IV PRN ×2 (22:43)
[2018-06-13] MEDS ORDERED: PROMETHAZINE HCL INJ 25 MG/1 ML VIAL IV PRN ×2 (22:43)
[2018-06-13] MEDS ORDERED: MORPHINE SULFATE 10 MG/ML INJ IV PRN (22:43)
[2018-06-13] MEDS ORDERED: ONDANSETRON HCL INJ/PF 4 MG/2 ML SDV IV PRN (22:43)
[2018-06-13] MEDS ORDERED: OXYCODONE-ACETAMINOPHEN 5-325 MG TABLET PO PRN ×2 (22:43)
[2018-06-13] MEDS ORDERED: MEPERIDINE HCL/PF INJ 25 MG/1 ML DISP.SYRIN IV PRN (22:43)
--- NOTE | 2018-06-13 22:54 | Operative Report ---
Operative Report DATE OF SURGERY: 06/13/18 PREOPERATIVE DIAGNOSIS: rt arm abscess POSTOPERATIVE DIAGNOSIS: rt arm abscess OPERATION: incision drainage of right arm abscess SURGEON: CIERRA VASQUEZ ANESTHESIA: LMAC TISSUE REMOVED OR ALTERED: none COMPLICATIONS: none ESTIMATED BLOOD LOSS: 100 INTRAOPERATIVE FINDINGS: see dictation PROCEDURE: see dictation
[2018-06-13] MEDS: FENTANYL CITRATE INJ/PF 100 MCG/2 ML AMPUL IV PRN ×2 (23:02→23:12)
[2018-06-13] MEDS ORDERED: HYDROMORPHONE HCL INJ/PF 2 MG/ML AMPULE IV PRN (23:49)
[2018-06-14] MEDS: MORPHINE SULFATE 10 MG/ML INJ IV PRN ×8 (01:15→22:17)
[2018-06-14] MEDS ORDERED: VANCOMYCIN HCL INJ 1000 MG VIAL ONE (02:42)
[2018-06-14] MEDS ORDERED: VANCOMYCIN HCL INJ 500 MG VIAL ONE (02:42)
[2018-06-14] MEDS: VANCOMYCIN HCL 1,250 MG in DEXTROSE 5%-WATER 250 ML IV SCH ×3 (03:12→17:18)
--- NOTE | 2018-06-14 03:17 | OPERATIVE REPORT E ---
Operative Report NAME: DRAKE JOEL : 1970 AGE: 48Y DATE OF SURGERY: 06/13/2018 ROOM: 405 PREOPERATIVE DIAGNOSIS: RIGHT ARM ANTECUBITAL FOSSA ABSCESS. POSTOPERATIVE DIAGNOSIS: RIGHT ARM ANTECUBITAL FOSSA ABSCESS. OPERATION: Incision and drainage of right arm antecubital abscess. SURGEON: CIERRA VASQUEZ M.D. INDICATION FOR PROCEDURE: This is a 48-year-old female who presented to the emergency room yesterday with increased right arm swelling and pain. She was noted to have an antecubital abscess. A small I and D (incision and drainage) was done by the emergency room physician. She was moved to the medicine service for IV antibiotics. This morning, the medical physician asked surgical consultation. The arm was noted to be markedly swollen with drainage of a large amount of pus through the small incision that was made in the emergency room and a large amount of pus was able to be expressed from the lower aspect of the forearm. Therefore, she was taken to the operating room for a more extensive debridement. PROCEDURE: The patient brought to the operating room awake, alert, and in stable condition. Placed on the operating room table in supine position and given IV sedation and general anesthesia. The right arm was prepped and draped in the usual sterile manner for the procedure. The incision was extended on the volar aspect of her arm all the way down to her lower third of her forearm, about 10-12 cm from the antecubital fossa, and then up onto the lateral aspect of her upper arm to the biceps muscle. The wound flaps were then raised, and upon raising the wound flaps there was a lot of granulation tissue and purulent material extending all the way from the inferior aspect of the incision to the upper arm. Debridement then ensued with the blunt and sharp dissection, using a suction lobsterman and Air curette. Once all the and fibrous tissue was removed, the wound was copiously irrigated with normal saline. Hemostasis was obtained with Bovie cautery and 1 suture ligature of 3-0 Vicryl in the upper arm. All pockets were opened digitally. After good hemostasis, the wound was packed with a saline and Betadine-soaked Kerlix gauze and a sterile dressing was applied to terminate the procedure. Estimated blood loss was 100 mL. Sponge and needle counts were correct x2. The patient was then awakened in the operating room and transferred to recovery in stable condition. DICTATING PHYSICIAN: CIERRA VASQUEZ M.D. [id number] PHY#: [id number] ID: [id number] JOB#: [id number] ACCT: [id number] cc:CIERRA VASQUEZ M.D. >
[2018-06-14 05:56] LABS: ABSOLUTE BASOPHILS # (AUTO) 0.1 10^3/uL (0.0-0.2); ABSOLUTE EOSINOPHILS # (AUTO) 0.4 10^3/uL (0.0-0.6); ABSOLUTE LYMPHOCYTES (AUTO) 2.2 10^3/uL (0.5-4.7); ABSOLUTE MONOCYTES (AUTO) 0.7 10^3/uL (0.1-1.4); BASOPHILS % (AUTO) 1.1 % (0-2); HEMATOCRIT 34.2 % (36.0-47.0); HEMOGLOBIN 11.7 g/dL (12.0-15.5); LYMPHOCYTES % (AUTO) 30.5 % (13-45); MEAN CORPUSCULAR HEMOGLOBIN 29.5 pg (27.0-33.4); MEAN CORPUSCULAR HGB CONC 34.3 g/dL (32.0-36.0); MEAN CORPUSCULAR VOLUME 86 fl (80-97); MONOCYTES % (AUTO) 9.3 % (3-13); PLATELET COUNT 314 10^3/uL (150-450); RED BLOOD COUNT 3.98 10^6/uL (3.72-5.28); RED CELL DISTRIBUTION WIDTH 12.4 % (11.5-14.0); SEGMENTED NEUTROPHILS % (AUTO) 54.1 % (42-78); TOTAL CELLS COUNTED % (AUTO) 100 %; WHITE BLOOD COUNT 7.3 10^3/uL (4.0-10.5)
[2018-06-14] MEDS: HEPARIN SOD (PORCINE) 5,000 UNIT/ML 1 ML SYRINGE SUBCUT SCH ×3 (06:03→22:18)
[2018-06-14 06:10] LABS: ANION GAP 5 (5-19); BLOOD UREA NITROGEN 5 mg/dL (7-20); CALCIUM 8.5 mg/dL (8.4-10.2); CARBON DIOXIDE 25 mmol/L (22-30); CHLORIDE 111 mmol/L (98-107); GLUCOSE 88 mg/dL (75-110); POTASSIUM 3.9 mmol/L (3.6-5.0); SODIUM 140.6 mmol/L (137-145)
--- NOTE | 2018-06-14 11:06 | PDOC PROGRESS REPORT ---
Subjective Progress Note for:: 06/14/18 Subjective:: c/o RUE incisional pain Reason For Visit: CELLULITIS WITH ABSCESS RIGHT UPPER EXTREMITY Physical Exam Vital Signs: Temp Pulse Resp BP Pulse Ox 97.4 F 80 18 92/58 L 98 06/14/18 08:00 06/14/18 08:00 06/14/18 08:00 06/14/18 08:00 06/14/18 08:00 Intake & Output 06/13/18 06/14/18 06/15/18 06:59 06:59 06:59 Intake Total 550 3286 Output Total 50 Balance 550 3236 Weight 68.9 kg 68.9 kg General appearance: PRESENT: no acute distress Extremities exam: PRESENT: +1 edema - RUE, other - neuro exam; motor/sensory functions are WNL Skin exam: PRESENT: other - RUE: surgical wound volar distal arm and proximal forearm is granulating, no odor, minimal drainage, pink Results Laboratory Results: 06/14/18 04:15 06/14/18 04:15 06/13/18 06/13/18 06/14/18 05:09 17:45 04:15 WBC 7.3 RBC 3.98 Hgb 11.7 L Hct 34.2 L MCV 86 MCH 29.5 MCHC 34.3 RDW 12.4 Plt Count 314 Seg Neutrophils % 54.1 Lymphocytes % 30.5 Monocytes % 9.3 Eosinophils % 5.0 Basophils % 1.1 Absolute Neutrophils 4.0 Absolute Lymphocytes 2.2 Absolute Monocytes 0.7 Absolute Eosinophils 0.4 Absolute Basophils 0.1 Sodium Potassium Chloride Carbon Dioxide Anion Gap BUN Creatinine 0.41 L Est GFR ( Amer) > 60 Est GFR (Non-Af Amer) > 60 Glucose Calcium Magnesium Serum HCG, Qual NEGATIVE 06/14/18 04:15 WBC RBC Hgb Hct MCV MCH MCHC RDW Plt Count Seg Neutrophils % Lymphocytes % Monocytes % Eosinophils % Basophils % Absolute Neutrophils Absolute Lymphocytes Absolute Monocytes Absolute Eosinophils Absolute Basophils Sodium 140.6 Potassium 3.9 Chloride 111 H Carbon Dioxide 25 Anion Gap 5 BUN 5 L Creatinine 0.44 L Est GFR ( Amer) > 60 Est GFR (Non-Af Amer) > 60 Glucose 88 Calcium 8.5 Magnesium 2.2 Serum HCG, Qual Impressions: Extremity Ultrasound 06/12/18 00:00 IMPRESSION: Cellulitis. Complex phlegmon in the antecubital fossa. Assessment & Plan - Diagnosis (1) Abscess of antecubital fossa Is this a current diagnosis for this admission?: Yes (2) Abscess of right arm Is this a current diagnosis for this admission?: Yes - Plan Summary Plan Summary: A; POD #1 after I&D RUE abscess forearm/arm Blood cx pending, no growth Wound clean, no odor or drainage P/ BID Silvadene cream dressing changes possible discharge tomorrow Home health consult
[2018-06-14] MEDS: CEFTRIAXONE 2 GM/D5W RTU 2 GM/50 ML RTUPB IV SCH (11:31)
[2018-06-14] MEDS: SILVER SULFADIAZINE 1% CREAM 400 GM TP SCH ×2 (12:08→17:28)
--- NOTE | 2018-06-14 16:06 | PDOC PROGRESS REPORT ---
Subjective Progress Note for:: 06/14/18 Subjective:: Patient better with less pain and swelling today Reason For Visit: CELLULITIS WITH ABSCESS RIGHT UPPER EXTREMITY Physical Exam Vital Signs: Temp Pulse Resp BP Pulse Ox 98.7 F 89 18 102/57 L 100 06/14/18 15:18 06/14/18 15:18 06/14/18 15:18 06/14/18 15:18 06/14/18 15:18 Intake & Output 06/13/18 06/14/18 06/15/18 06:59 06:59 06:59 Intake Total 550 3286 300 Output Total 50 Balance 550 3236 300 Weight 68.9 kg 68.9 kg General appearance: PRESENT: no acute distress, well-developed, well-nourished Head exam: PRESENT: atraumatic, normocephalic Eye exam: PRESENT: conjunctiva pink, EOMI, PERRLA. ABSENT: scleral icterus Ear exam: PRESENT: normal external ear exam Mouth exam: PRESENT: moist, tongue midline Neck exam: ABSENT: carotid bruit, JVD, lymphadenopathy, thyromegaly Respiratory exam: PRESENT: clear to auscultation eladio. ABSENT: rales, rhonchi, wheezes Cardiovascular exam: PRESENT: RRR. ABSENT: diastolic murmur, rubs, systolic murmur Pulses: PRESENT: normal dorsalis pedis pul Vascular exam: PRESENT: normal capillary refill GI/Abdominal exam: PRESENT: normal bowel sounds, soft. ABSENT: distended, guarding, mass, organolmegaly, rebound, tenderness Rectal exam: PRESENT: deferred Extremities exam: PRESENT: other - R UE , antecubital area less swollen and erythematous. ABSENT: calf tenderness, clubbing, pedal edema Neurological exam: PRESENT: alert, awake, oriented to person, oriented to place, oriented to time, oriented to situation, CN II-XII grossly intact. ABSENT: motor sensory deficit Psychiatric exam: PRESENT: appropriate affect, normal mood. ABSENT: homicidal ideation, suicidal ideation Skin exam: PRESENT: dry, intact, warm. ABSENT: cyanosis, rash Results Laboratory Results: 06/14/18 04:15 06/14/18 04:15 06/13/18 06/14/18 06/14/18 17:45 04:15 04:15 WBC 7.3 RBC 3.98 Hgb 11.7 L Hct 34.2 L MCV 86 MCH 29.5 MCHC 34.3 RDW 12.4 Plt Count 314 Seg Neutrophils % 54.1 Lymphocytes % 30.5 Monocytes % 9.3 Eosinophils % 5.0 Basophils % 1.1 Absolute Neutrophils 4.0 Absolute Lymphocytes 2.2 Absolute Monocytes 0.7 Absolute Eosinophils 0.4 Absolute Basophils 0.1 Sodium 140.6 Potassium 3.9 Chloride 111 H Carbon Dioxide 25 Anion Gap 5 BUN 5 L Creatinine 0.41 L 0.44 L Est GFR ( Amer) > 60 > 60 Est GFR (Non-Af Amer) > 60 > 60 Glucose 88 Calcium 8.5 Magnesium 2.2 Impressions: Extremity Ultrasound 06/12/18 00:00 IMPRESSION: Cellulitis. Complex phlegmon in the antecubital fossa. Assessment & Plan - Diagnosis (1) Abscess of antecubital fossa Is this a current diagnosis for this admission?: Yes Plan: No cultures are available Will continue empiric abx (2) SIRS (systemic inflammatory response syndrome) Is this a current diagnosis for this admission?: Yes (3) Abscess of right arm Is this a current diagnosis for this admission?: Yes (4) Hypokalemia Is this a current diagnosis for this admission?: Yes (5) Chronic pain disorder Is this a current diagnosis for this admission?: Yes Plan: Patient denies any recent IV drug abuse. She was quite adamant and upset about this. Drug screen noted. It is unknown if drug abuse is a contributing factor for her abscess - Time Time Spent with patient: 15-24 minutes Medications reviewed and adjusted accordingly: Yes Anticipated discharge: Home Within: within 72 hours - Inpatient Certification Based on my medical assessment, after consideration of the patient's comorbidities, presenting symptoms, or acuity I expect that the services needed warrant INPATIENT care.: Yes Medical Necessity: Need for IV Antibiotics
[2018-06-15] MEDS: MORPHINE SULFATE 10 MG/ML INJ IV PRN ×8 (03:26→21:33)
[2018-06-15] MEDS: VANCOMYCIN HCL 1,250 MG in DEXTROSE 5%-WATER 250 ML IV SCH ×3 (03:35→19:23)
[2018-06-15] MEDS: HEPARIN SOD (PORCINE) 5,000 UNIT/ML 1 ML SYRINGE SUBCUT SCH ×3 (05:57→21:44)
--- NOTE | 2018-06-15 09:00 | PDOC PROGRESS REPORT ---
Subjective Progress Note for:: 06/15/18 Subjective:: No c/o Reason For Visit: CELLULITIS WITH ABSCESS RIGHT UPPER EXTREMITY Physical Exam Vital Signs: Temp Pulse Resp BP Pulse Ox 98.5 F 78 16 113/62 100 06/15/18 07:49 06/15/18 08:14 06/15/18 08:14 06/15/18 07:49 06/15/18 08:14 Intake & Output 06/14/18 06/15/18 06/16/18 06:59 06:59 06:59 Intake Total 3286 1604 Output Total 50 Balance 3236 1604 Weight 68.9 kg General appearance: PRESENT: no acute distress Extremities exam: PRESENT: other - RUE: wound clean, granulating, minima; erythema on the edges, no odor Results Laboratory Results: 06/14/18 04:15 06/14/18 04:15 Impressions: Extremity Ultrasound 06/12/18 00:00 IMPRESSION: Cellulitis. Complex phlegmon in the antecubital fossa. Assessment & Plan - Diagnosis (1) Abscess of antecubital fossa Is this a current diagnosis for this admission?: Yes (2) Abscess of right arm Is this a current diagnosis for this admission?: Yes - Plan Summary Plan Summary: A/ S/P I&D RUE abscess incoilvoing arm and forearm wound clkean, granulating Currently, wound treated with Silvadene cream BID P/ Patient can be discharged to home today as epr General Surgery viewpoint Wound care: 1) Twice a day= Apply Silvadene cream (thin layer only and do not smear on normal skin, it will macerate) to RUE wound, lightly pack with continuous sponge, cover with Kerlix roll, ALDO bandage 2) After 5 days of SIlvadene cream (06/19/18), stop Silvadene cream use and pack RUE wound oince a day with NS wet-to-dry contimnuous sponge (DO NOT pack with single 4x4, they can get lost in the wound, Kelrix roll, Aldo bandage 3) Oral antibiotics for 1 week as poer Hospitalist 4) Follow up in 2 weeks in the Surgery Clinic with KAELA Brown 5) Tylenol/Advil for pain only, no narcotics 6) Patient can shower, protect RUE with towel 7) Bath allowed when RUE wound is fully closed
[2018-06-15] MEDS: SILVER SULFADIAZINE 1% CREAM 400 GM TP SCH ×2 (09:21→21:56)
[2018-06-15 10:55] LABS: VANCOMYCIN,TROUGH 13.8 ug/mL (5.0-20.0)
[2018-06-15] MEDS: CEFTRIAXONE 2 GM/D5W RTU 2 GM/50 ML RTUPB IV SCH (11:10)
--- NOTE | 2018-06-15 12:55 | PDOC PROGRESS REPORT ---
Subjective Progress Note for:: 06/15/18 Subjective:: Patient better with less pain and swelling today however Reason For Visit: CELLULITIS WITH ABSCESS RIGHT UPPER EXTREMITY Physical Exam Vital Signs: Temp Pulse Resp BP Pulse Ox 97.6 F 76 16 100/57 L 99 06/15/18 11:46 06/15/18 11:46 06/15/18 11:46 06/15/18 11:46 06/15/18 11:46 Intake & Output 06/14/18 06/15/18 06/16/18 06:59 06:59 06:59 Intake Total 3286 1604 Output Total 50 Balance 3236 1604 Weight 68.9 kg General appearance: PRESENT: no acute distress, well-developed, well-nourished Head exam: PRESENT: atraumatic, normocephalic Eye exam: PRESENT: conjunctiva pink, EOMI, PERRLA. ABSENT: scleral icterus Ear exam: PRESENT: normal external ear exam Mouth exam: PRESENT: moist, tongue midline Neck exam: ABSENT: carotid bruit, JVD, lymphadenopathy, thyromegaly Respiratory exam: PRESENT: clear to auscultation eladio. ABSENT: rales, rhonchi, wheezes Cardiovascular exam: PRESENT: RRR. ABSENT: diastolic murmur, rubs, systolic murmur Pulses: PRESENT: normal dorsalis pedis pul Vascular exam: PRESENT: normal capillary refill GI/Abdominal exam: PRESENT: normal bowel sounds, soft. ABSENT: distended, guarding, mass, organolmegaly, rebound, tenderness Rectal exam: PRESENT: deferred Extremities exam: PRESENT: tenderness. ABSENT: calf tenderness, clubbing, full ROM - Diminished ROM Relbow with diminished extension resolving erythema tenderness, pedal edema Musculoskeletal exam: PRESENT: ambulatory Neurological exam: PRESENT: alert, awake, oriented to person, oriented to place, oriented to time, oriented to situation, CN II-XII grossly intact. ABSENT: motor sensory deficit Psychiatric exam: PRESENT: appropriate affect, normal mood. ABSENT: homicidal ideation, suicidal ideation Skin exam: PRESENT: dry, intact, warm, other - R antecubital area as described. ABSENT: cyanosis, rash Results Laboratory Results: 06/14/18 04:15 06/14/18 04:15 Impressions: Extremity Ultrasound 06/12/18 00:00 IMPRESSION: Cellulitis. Complex phlegmon in the antecubital fossa. Assessment & Plan - Diagnosis (1) Abscess of antecubital fossa Is this a current diagnosis for this admission?: Yes Plan: S/p I and D by ED as well as Surgery in OR Unfortunately no cultures are available Patient is on empiric Vancomycin and Ceftriaxone Day 4 Will cont IV abx given severity of patient;s infection, await Home health arrangements as suggested by Surgery and plan on home in am (2) SIRS (systemic inflammatory response syndrome) Is this a current diagnosis for this admission?: Yes Plan: This patient presented with tachycardia, tachypnea and the source of infection of the severe cellulitis as well as leukocytosis. She may well have an early sepsis. This has resolved (3) Abscess of right arm Is this a current diagnosis for this admission?: Yes Plan: Cont IV abx (4) Hypokalemia Is this a current diagnosis for this admission?: Yes (5) Chronic pain disorder Is this a current diagnosis for this admission?: Yes Plan: Patient denies any recent IV drug abuse. She was quite adamant and upset about this. Drug screen noted. It is unknown if drug abuse is a contributing factor for her abscess patient counseled on need for abstinence - Time Time Spent with patient: 25-34 minutes Medications reviewed and adjusted accordingly: Yes Anticipated discharge: Home Within: within 24 hours - Inpatient Certification Based on my medical assessment, after consideration of the patient's comorbidities, presenting symptoms, or acuity I expect that the services needed warrant INPATIENT care.: Yes Medical Necessity: Need for IV Antibiotics
[2018-06-16] MEDS: MORPHINE SULFATE 10 MG/ML INJ IV PRN ×5 (00:07→13:57)
[2018-06-16] MEDS: VANCOMYCIN HCL 1,250 MG in DEXTROSE 5%-WATER 250 ML IV SCH ×2 (02:00→10:58)
[2018-06-16] MEDS: HEPARIN SOD (PORCINE) 5,000 UNIT/ML 1 ML SYRINGE SUBCUT SCH (05:27)
[2018-06-16 06:20] LABS: ABSOLUTE BASOPHILS # (AUTO) 0.1 10^3/uL (0.0-0.2); ABSOLUTE EOSINOPHILS # (AUTO) 0.4 10^3/uL (0.0-0.6); ABSOLUTE LYMPHOCYTES (AUTO) 2.6 10^3/uL (0.5-4.7); ABSOLUTE MONOCYTES (AUTO) 0.6 10^3/uL (0.1-1.4); ABSOLUTE NEUT (AUTO) 4.6 10^3/uL (1.7-8.2); BASOPHILS % (AUTO) 0.7 % (0-2); EOSINOPHILS % (AUTO) 4.5 % (0-6); HEMATOCRIT 38.3 % (36.0-47.0); HEMOGLOBIN 13.2 g/dL (12.0-15.5); LYMPHOCYTES % (AUTO) 31.7 % (13-45); MEAN CORPUSCULAR HEMOGLOBIN 29.5 pg (27.0-33.4); MEAN CORPUSCULAR HGB CONC 34.4 g/dL (32.0-36.0); MEAN CORPUSCULAR VOLUME 86 fl (80-97); MONOCYTES % (AUTO) 7.3 % (3-13); PLATELET COUNT 320 10^3/uL (150-450); RED BLOOD COUNT 4.46 10^6/uL (3.72-5.28); RED CELL DISTRIBUTION WIDTH 12.7 % (11.5-14.0); SEGMENTED NEUTROPHILS % (AUTO) 55.8 % (42-78); TOTAL CELLS COUNTED % (AUTO) 100 %; WHITE BLOOD COUNT 8.2 10^3/uL (4.0-10.5)
[2018-06-16 06:38] LABS: ANION GAP 9 (5-19); BLOOD UREA NITROGEN 11 mg/dL (7-20); CALCIUM 9.2 mg/dL (8.4-10.2); CARBON DIOXIDE 24 mmol/L (22-30); CHLORIDE 108 mmol/L (98-107); GLUCOSE 89 mg/dL (75-110); POTASSIUM 4.4 mmol/L (3.6-5.0); SODIUM 140.9 mmol/L (137-145)
[2018-06-16] MEDS: CEFTRIAXONE 2 GM/D5W RTU 2 GM/50 ML RTUPB IV SCH (09:39)
[2018-06-16] MEDS: SILVER SULFADIAZINE 1% CREAM 400 GM TP SCH (11:05)
--- NOTE | 2018-06-16 15:11 | PDOC DISCHARGE SUMMARY ---
General - Admit/Disc Date/PCP Admission Date/Primary Care Provider: 06/11/18 23:09 Discharge Date: 06/16/18 - Discharge Diagnosis (1) Abscess of antecubital fossa Is this a current diagnosis for this admission?: Yes (2) SIRS (systemic inflammatory response syndrome) Is this a current diagnosis for this admission?: Yes (3) Abscess of right arm Is this a current diagnosis for this admission?: Yes (4) Hypokalemia Is this a current diagnosis for this admission?: Yes (5) Chronic pain disorder Is this a current diagnosis for this admission?: Yes - Additional Information Resuscitation Status: Full Code Discharge Diet: As Tolerated Discharge Activity: Activity As Tolerated Prescriptions: Tramadol HCl [Ultram] 50 mg PO Q6HP PRN #20 tablet PRN Reason: For Pain Scale 2-4 Clindamycin HCl 600 mg PO Q8 #20 capsule Home Medications: Alprazolam [Xanax 0.5 mg Tablet] 0.5 mg PO TIDP PRN 06/12/18 Oxycodone HCl [Roxicodone] 5 mg PO QIDP PRN 06/12/18 Clindamycin HCl 600 mg PO Q8 #20 capsule 06/16/18 Silver Sulfadiazine [Silvadene 1% Cream 400 gm] 1 applic TP BID jar 06/16/18 Tramadol HCl [Ultram] 50 mg PO Q6HP PRN #20 tablet 06/16/18 History of Present Illness Patient complains of: Patient was admitted with severe cellulitis and abscess of the right upper extremity. History of Present Illness: DRAKE JOEL is a 48 year old female Hospital Course Hospital Course: Patient was admitted with severe cellulitis and abscess of the right upper extremity. She initially had an incision and drainage done in the emergency room. She was started on IV antibiotics. She was reassessed by the general surgeon due to persistent pain and had incision and drainage done in the OR. Symptoms has since improved. She received 5 days of ceftriaxone 2 g IV as well as vancomycin while in hospital and she has been transitioned to oral clindamycin at this time. Unfortunately no cultures available to guide antibiotic choice. Initial white count was 22.6 and this is proved down to 8.2 today. Patient denies any current drug use and she was adamant that the cellulitis was not related to any IV drug use. Home health has been arranged with dressing and wound care as per surgical suggestion. Physical Exam Vital Signs: Temp Pulse Resp BP Pulse Ox 97.4 F 84 18 92/57 L 100 06/16/18 11:56 06/16/18 11:56 06/16/18 11:56 06/16/18 11:56 06/16/18 11:56 Intake & Output 06/15/18 06/16/18 06/17/18 06:59 06:59 06:59 Intake Total 1604 1606 1248 Balance 1604 1606 1248 Weight 65.3 kg General appearance: PRESENT: no acute distress, well-developed, well-nourished Head exam: PRESENT: atraumatic, normocephalic Eye exam: PRESENT: conjunctiva pink, EOMI, PERRLA. ABSENT: scleral icterus Ear exam: PRESENT: normal external ear exam Mouth exam: PRESENT: moist, tongue midline Neck exam: ABSENT: carotid bruit, JVD, lymphadenopathy, thyromegaly Respiratory exam: PRESENT: clear to auscultation eladio. ABSENT: rales, rhonchi, wheezes Cardiovascular exam: PRESENT: RRR. ABSENT: diastolic murmur, rubs, systolic murmur Pulses: PRESENT: normal dorsalis pedis pul Vascular exam: PRESENT: normal capillary refill GI/Abdominal exam: PRESENT: normal bowel sounds, soft. ABSENT: distended, guarding, mass, organolmegaly, rebound, tenderness Rectal exam: PRESENT: deferred Extremities exam: PRESENT: full ROM, other - Right antecubital fossa area swelling diminished as well as with diminished erythema. I&D site with drainage. ABSENT: calf tenderness, clubbing, pedal edema Musculoskeletal exam: PRESENT: ambulatory Neurological exam: PRESENT: alert, awake, oriented to person, oriented to place, oriented to time, oriented to situation, CN II-XII grossly intact. ABSENT: motor sensory deficit Psychiatric exam: PRESENT: appropriate affect, normal mood. ABSENT: homicidal ideation, suicidal ideation Skin exam: PRESENT: dry, intact, warm. ABSENT: cyanosis, rash Results Laboratory Results: 06/16/18 05:17 06/16/18 05:17 06/16/18 06/16/18 05:17 05:17 WBC 8.2 RBC 4.46 Hgb 13.2 Hct 38.3 MCV 86 MCH 29.5 MCHC 34.4 RDW 12.7 Plt Count 320 Seg Neutrophils % 55.8 Lymphocytes % 31.7 Monocytes % 7.3 Eosinophils % 4.5 Basophils % 0.7 Absolute Neutrophils 4.6 Absolute Lymphocytes 2.6 Absolute Monocytes 0.6 Absolute Eosinophils 0.4 Absolute Basophils 0.1 Sodium 140.9 Potassium 4.4 Chloride 108 H Carbon Dioxide 24 Anion Gap 9 BUN 11 Creatinine 0.46 L Est GFR ( Amer) > 60 Est GFR (Non-Af Amer) > 60 Glucose 89 Calcium 9.2 Impressions: Extremity Ultrasound 06/12/18 00:00 IMPRESSION: Cellulitis. Complex phlegmon in the antecubital fossa. Qualifiers - * PATIENT BEING DISCHARGED WITH ANY OF THE FOLLOWING DIAGNOSIS: No Plan Time Spent: Greater than 30 Minutes
[2018-06-16 15:17] VITALS: BP 110/62
== END 2018-06-16 16:58 | disposition home health service (06) | DRG 581 ==
LOC: ER 19:37 → EH 23:09 → 4N 06-12 16:50
PROVIDERS: ADMIT Emergency Medicine; ATTEND Emergency Medicine
PROC: 0H9BXZZ Drainage of Right Upper Arm Skin, External Approach (ICD-10-PCS; 2018-06-11)
PROC: 0J9D0ZZ Drainage of Right Upper Arm Subcutaneous Tissue and Fascia, Open Approach (ICD-10-PCS; 2018-06-13)
PROC: 0J9G0ZZ Drainage of Right Lower Arm Subcutaneous Tissue and Fascia, Open Approach (ICD-10-PCS; principal; 2018-06-13 19:00)
DX: L03.113 Cellulitis of right upper limb (principal); E87.6 Hypokalemia; F41.9 Anxiety disorder, unspecified; G89.29 Other chronic pain; F12.10 Cannabis abuse, uncomplicated; F17.200 Nicotine dependence, unspecified, uncomplicated; Z71.6 Tobacco abuse counseling
CPT/HCPCS: 1710; 36415; 76881; 80048; 80053; 80061; 80202; 80307; 81001; 82565; 83036; 83605; 83735; 84439; 84443; 84481; 84703; 85025; 87040; 99284; 99152; J0696; J1170; J1335; J1644; J2250; J2270; J2405; J2704; J3010; J3370; J3475; J3480; J3490; J7060; J7120

== ENCOUNTER 2019-02-09 15:09 | Inpatient (IN) | payer SELFPAY ==
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
--- NOTE | 2019-02-09 17:29 | RADIOLOGY REPORT (SQ) ---
EXAM DESCRIPTION: HAND LEFT 3 VIEWS COMPLETED DATE/TIME: 02/09/2019 5:16 pm REASON FOR STUDY: Erythematous swelling pain and infection COMPARISON: None. EXAM PARAMETERS: NUMBER OF VIEWS: Three views. TECHNIQUE: AP, lateral and oblique radiographic images acquired of the left hand. LIMITATIONS: None. FINDINGS: MINERALIZATION: Normal. BONES: No fracture or dislocation. The navicular appears to have been resected. JOINTS: No effusions. SOFT TISSUES: Soft tissue swelling best OTHER: No other significant finding. IMPRESSION: Soft tissue swelling. No osseous abnormality. TECHNICAL DOCUMENTATION: JOB ID: [id number] [employer]- All Rights Reserved Reading location - IP/workstation name: [email or web address]
[2019-02-09 18:50] LABS: ABSOLUTE EOSINOPHILS # (AUTO) 0.1 10^3/uL (0.0-0.6); ABSOLUTE LYMPHOCYTES (AUTO) 1.8 10^3/uL (0.5-4.7); ABSOLUTE MONOCYTES (AUTO) 0.6 10^3/uL (0.1-1.4); ABSOLUTE NEUT (AUTO) 4.6 10^3/uL (1.7-8.2); BASOPHILS % (AUTO) 0.6 % (0-2); HEMATOCRIT 38.3 % (36.0-47.0); HEMOGLOBIN 12.9 g/dL (12.0-15.5); LYMPHOCYTES % (AUTO) 24.9 % (13-45); MEAN CORPUSCULAR HEMOGLOBIN 28.7 pg (27.0-33.4); MEAN CORPUSCULAR HGB CONC 33.7 g/dL (32.0-36.0); MEAN CORPUSCULAR VOLUME 85 fl (80-97); MONOCYTES % (AUTO) 8.6 % (3-13); PLATELET COUNT 379 10^3/uL (150-450); RED BLOOD COUNT 4.49 10^6/uL (3.72-5.28); RED CELL DISTRIBUTION WIDTH 13.1 % (11.5-14.0); SEGMENTED NEUTROPHILS % (AUTO) 63.9 % (42-78); TOTAL CELLS COUNTED % (AUTO) 100 %; WHITE BLOOD COUNT 7.3 10^3/uL (4.0-10.5)
[2019-02-09 19:33] LABS: ALBUMIN 3.7 g/dL (3.5-5.0); ALKALINE PHOSPHATASE 97 U/L (38-126); ANION GAP 9 (5-19); ASPARTATE AMINO TRANSFERASE 26 U/L (14-36); BILIRUBIN,DIRECT 0.1 mg/dL (0.0-0.4); BILIRUBIN,TOTAL 0.2 mg/dL (0.2-1.3); BLOOD UREA NITROGEN 9 mg/dL (7-20); CALCIUM 9.6 mg/dL (8.4-10.2); CARBON DIOXIDE 29 mmol/L (22-30); CHLORIDE 105 mmol/L (98-107); GLUCOSE 105 mg/dL (75-110); TOTAL PROTEIN 6.8 g/dL (6.3-8.2)
[2019-02-09 21:09] LABS: APPEARANCE,URINE SLIGHTLY-CLOUDY; BILIRUBIN,URINE NEGATIVE (NEGATIVE); COLOR,URINE YELLOW; GLUCOSE, URINE NEGATIVE (NEGATIVE); KETONES,URINE NEGATIVE (NEGATIVE); LEUKOCYTE ESTERASE,URINE NEGATIVE (NEGATIVE); NITRITE,URINE NEGATIVE (NEGATIVE); PROTEIN,URINE NEGATIVE (NEGATIVE); URINE SPECIFIC GRAVITY 1.018; UROBILINOGEN,URINE NEGATIVE mg/dL (<2.0)
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
[2019-02-09 21:29] LABS: URINE BARBITURATES SCREEN NEGATIVE; URINE PHENCYCLIDINE SCREEN NEGATIVE
[2019-02-09 21:37] LABS: URINE BENZODIAZEPINES SCREEN UNCONFIRMED POSITIVE; URINE COCAINE SCREEN UNCONFIRMED POSITIVE; URINE MARIJUANA (THC) SCREEN UNCONFIRMED POSITIVE; URINE METHADONE SCREEN UNCONFIRMED POSITIVE
[2019-02-09] MEDS ORDERED: LIDOCAINE 2% INJ (20 MG/ML) 20 ML MDV INJ ONE (22:21)
[2019-02-09] MEDS ORDERED: ONDANSETRON HCL INJ/PF 4 MG/2 ML SDV IV ONE (22:34)
[2019-02-09] MEDS ORDERED: HYDROMORPHONE HCL INJ/PF 2 MG/ML AMPULE IV ONE (22:34)
[2019-02-09] MEDS ORDERED: ONDANSETRON HCL INJ/PF 4 MG/2 ML SDV ONE (22:35)
[2019-02-09] MEDS ORDERED: HYDROMORPHONE HCL INJ/PF 2 MG/ML AMPULE ONE (22:36)
[2019-02-09] MEDS ORDERED: VANCOMYCIN HCL INJ 1000 MG VIAL IV ONE (22:38)
[2019-02-09] MEDS ORDERED: HYDRALAZINE HCL INJ/PF 20 MG/1 ML SDV IV PRN (22:38)
[2019-02-09] MEDS ORDERED: ACETAMINOPHEN 325 MG TABLET PO PRN ×2 (22:38→22:39)
[2019-02-09] MEDS ORDERED: IPRATROPIUM/ALBUTEROL 0.5-2.5 MG/3 ML AMPUL NEB PRN (22:39)
[2019-02-09] MEDS ORDERED: MAGNESIUM HYDROXIDE SUSP 30 ML UDCUP PO PRN (22:39)
[2019-02-09] MEDS ORDERED: MAG HYDROX/AL HYDROX/SIMETH SUSP 30 ML UDCUP PO PRN (22:39)
[2019-02-09] MEDS ORDERED: HALOPERIDOL LACTATE INJ 5 MG/1 ML VIAL IV ONE (23:21)
[2019-02-09] MEDS: KETOROLAC TROMETHAMINE INJ/PF 30 MG/1 ML SDV IV PRN (23:25)
--- NOTE | 2019-02-09 23:27 | PDOC CONSULTATION ---
Consultation Consult Date: 02/09/19 Provider Consulted: NAMRATA BENJAMIN JR History of Present Illness Admission Date/PCP: 02/09/19 22:50 Patient complains of: The patient is a 48-year-old drug addict who presents to the hospital with a left hand infection. She explains that This started about 10 days ago and is progressively gotten worse. She said that she felt if she started doing more drugs that she could deal with the pain until it went away however she presented tonight with an overt infection with fluctuance and tracking up the arm. She is unsure whether or not she has had fevers she denies recent chills denies nausea vomiting. Pain is a 5 out of 10 at rest and a 10 out of 10 with any sort of motion or activity. She has taken illicit drugs to try to make the pain better. She has a long history of multiple infections including a right forearm I&D and a supposed lumbar spine infection that was worked up and found to be negative. History of Present Illness: DRAKE JOEL is a 48 year old female Past Medical History Cardiac Medical History: Denies: Coronary Artery Disease, DVT, Hyperlipidema, Hypertension, Pulmonary Embolism Pulmonary Medical History: Denies: Asthma, Chronic Obstructive Pulmonary Disease (COPD) Neurological Medical History: Denies: Seizures Endocrine Medical History: Denies: Diabetes Mellitus Type 1, Hyperthyroidism, Hypothyroidism GI Medical History: Denies: Cirrhosis, Hepatitis Musculoskeltal Medical History: Denies: Gout Skin Medical History: Denies: Eczema, Psoriasis Hematology: Denies: Anemia, Bleeding Tendencies Past Surgical History Past Surgical History: Reports: Orthopedic Surgery - L wrist, Tonsillectomy Social History Smoking Status: Current Every Day Smoker Frequency of Alcohol Use: Occasional Hx Recreational Drug Use: Yes Drugs: Marijuana Hx Prescription Drug Abuse: No Family History Family History: CAD, Malignancy Parental Family History Reviewed: No Children Family History Reviewed: No Sibling(s) Family History Reviewed.: No Medication/Allergy Home Medications: Alprazolam [Xanax 0.5 mg Tablet] 0.5 mg PO TIDP PRN 06/12/18 Oxycodone HCl [Roxicodone] 5 mg PO QIDP PRN 06/12/18 Clindamycin HCl 600 mg PO Q8 #20 capsule 06/16/18 Silver Sulfadiazine [Silvadene 1% Cream 400 gm] 1 applic TP BID jar 06/16/18 Tramadol HCl [Ultram] 50 mg PO Q6HP PRN #20 tablet 06/16/18 Allergies/Adverse Reactions: No Known Allergies Allergy (Verified 02/09/19 15:10) Physical Exam Vital Signs: Temp Pulse Resp BP Pulse Ox 98.5 F 120 H 16 134/91 H 97 02/09/19 15:36 02/09/19 15:36 02/09/19 15:36 02/09/19 15:36 02/09/19 15:36 Intake & Output 02/08/19 02/09/19 02/10/19 06:59 06:59 06:59 Weight 63.7 kg Physical Exam: My normal PE general appearance: PRESENT: Moderate distress, sickly appearing consistent with chronic illicit drug use. Poor dentition Head exam: PRESENT: atraumatic, normocephalic Eye exam: PRESENT: EOMI, Her left pupil is constricted in comparison to the right and injected. She explains that this is been ongoing for some time and she has a outside physician who has cleared this for infection Ear exam: PRESENT: normal external ear exam Mouth exam: PRESENT: neck supple, Poor dentition Neck exam: ABSENT: tracheal deviation Respiratory exam: PRESENT: symmetrical, unlabored. ABSENT: accessory muscle use, wheezes Pulses: PRESENT: normal radial pulses, normal dorsalis pedis pul Vascular exam: PRESENT: normal capillary refill GI/Abdominal exam: ABSENT: distended, firm Extremities exam: PRESENT: full ROM Musculoskeletal exam: PRESENT: Focused physical exam of the left hand demonstrates a large mass of fluctuance about 2 x 3 cm with thin skin covering an obvious infectious process with erythema radiating throughout the hand and up the forearm. Otherwise the hand is grossly sensation and motor intact capillary refill is less than 2 seconds. Range of motion of the hand is limited due to pain and swelling. Neurological exam: PRESENT: alert, awake, oriented to person, oriented to place, oriented to time Psychiatric exam: PRESENT: Hysterical, agitated Focused psych exam: She seems to be going through withdrawal symptoms and is hysterical about the potential for surgery. I had a long discussion with her regarding treatment plan and she eventually requested intervention in the emergency department Skin exam: PRESENT: intact. ABSENT: dry General appearance: PRESENT: disheveled, mild distress, thin Results Laboratory Results: 02/09/19 18:09 02/09/19 18:09 02/09/19 02/09/19 02/09/19 18:09 18:09 18:09 WBC 7.3 RBC 4.49 Hgb 12.9 Hct 38.3 MCV 85 MCH 28.7 MCHC 33.7 RDW 13.1 Plt Count 379 Seg Neutrophils % 63.9 Sodium 142.6 Potassium 4.0 Chloride 105 Carbon Dioxide 29 Anion Gap 9 BUN 9 Creatinine 0.59 Est GFR ( Amer) > 60 Glucose 105 Lactic Acid 2.0 Calcium 9.6 Total Bilirubin 0.2 AST 26 Alkaline Phosphatase 97 Total Protein 6.8 Albumin 3.7 Urine Color Urine Appearance Urine pH Ur Specific [place] Urine Protein Urine Glucose (UA) Urine Ketones Urine Blood Urine Nitrite Ur Leukocyte Esterase Urine WBC (Auto) Urine RBC (Auto) 02/09/19 20:43 WBC RBC Hgb Hct MCV MCH MCHC RDW Plt Count Seg Neutrophils % Sodium Potassium Chloride Carbon Dioxide Anion Gap BUN Creatinine Est GFR ( Amer) Glucose Lactic Acid Calcium Total Bilirubin AST Alkaline Phosphatase Total Protein Albumin Urine Color YELLOW Urine Appearance SLIGHTLY-CLOUDY Urine pH 5.0 Ur Specific [place] 1.018 Urine Protein NEGATIVE Urine Glucose (UA) NEGATIVE Urine Ketones NEGATIVE Urine Blood NEGATIVE Urine Nitrite NEGATIVE Ur Leukocyte Esterase NEGATIVE Urine WBC (Auto) 1 Urine RBC (Auto) 1 Impressions: Hand X-Ray 02/09/19 16:02 IMPRESSION: Soft tissue swelling. No osseous abnormality. Assessment & Plan - Diagnosis (1) Abscess of left hand Is this a current diagnosis for this admission?: Yes Plan: I had a long discussion with the patient regarding the risks and benefits of treatment and the risks and benefits of no treatment. At this time her infection is severe enough that continuing to wait could potentially lead to a septic response or progression leading to risk of limb. I clearly offered her the option of incision and drainage at the bedside versus formal surgery in the operating room. She was very anxious regarding either treatment and understood that earlier treatment in the in the emergency department would be preferable if she were capable of controlling her anxiety through the procedure. I explained that I would be happy to place her on the OR schedule if she could not bring herself to undergo the treatment in the emergency department. After a thorough discussion the patient elected to proceed with treatment in the emergency department. The patient had an I&D of her left dorsum of the hand in the emergency department under aseptic technique. Please see procedure note for full details. Plan from here will be to be admitted to the hospital and be provided with IV antibiotics as we wait for cultures. At that point focused antibiotics can be prescribed and she can potentially be discharged with continued p.o. medication. I will continue to monitor her for improvement. I did explain to her that this may not be the last procedure she needs on his hand and formal debridement in the OR may be required. We will evaluate for further needs. (2) Polysubstance abuse Is this a current diagnosis for this admission?: Yes (3) Chronic pain disorder Is this a current diagnosis for this admission?: Yes
--- NOTE | 2019-02-09 23:32 | Operative Report ---
Operative Report DATE OF SURGERY: 02/09/19 PREOPERATIVE DIAGNOSIS: Left hand abscess POSTOPERATIVE DIAGNOSIS: same OPERATION: Same left hand incision and drainage SURGEON: NAMRATA BENJAMIN JR ANESTHESIA: Local TISSUE REMOVED OR ALTERED: Cultures taken COMPLICATIONS: none PROCEDURE: After thoroughly discussing the risks and benefits of I&D in the emergency department the patient agreed and provided verbal consent in front of her family consisting of her mother and her sister. The extremity was then prepped with ChloraPrep and an injection of approximately 5 cc of 1% lidocaine was provided to the periphery of the abscess. After adequate analgesia and subsequent to 2 mg of IV Dilaudid, an incision was made through the thin layer of skin covering the abscess. Immediate bryan purulence was encountered along with bleeding from the hyperemic tissue surrounding the abscess. Cultures were taken. The wound was expressed and explored with a hemostat. The wound was then thoroughly irrigated with half Betadine half normal saline solution. The wound was expressed again and then a iodoform packing was applied. Sterile dressing was then applied. The patient tolerated the procedure well.
[2019-02-09] MEDS ORDERED: NICOTINE 7 MG/24 HR PATCH.TD24 TD ONE (23:45)
[2019-02-10] MEDS ORDERED: NICOTINE 7 MG/24 HR PATCH.TD24 ONE (00:21)
[2019-02-10 04:34] LABS: ABSOLUTE EOSINOPHILS # (AUTO) 0.3 10^3/uL (0.0-0.6); ABSOLUTE LYMPHOCYTES (AUTO) 2.3 10^3/uL (0.5-4.7); ABSOLUTE MONOCYTES (AUTO) 0.6 10^3/uL (0.1-1.4); ABSOLUTE NEUT (AUTO) 3.5 10^3/uL (1.7-8.2); BASOPHILS % (AUTO) 0.7 % (0-2); HEMOGLOBIN 12.5 g/dL (12.0-15.5); LYMPHOCYTES % (AUTO) 33.5 % (13-45); MEAN CORPUSCULAR HEMOGLOBIN 28.9 pg (27.0-33.4); MEAN CORPUSCULAR HGB CONC 33.9 g/dL (32.0-36.0); MEAN CORPUSCULAR VOLUME 85 fl (80-97); MONOCYTES % (AUTO) 8.8 % (3-13); PLATELET COUNT 346 10^3/uL (150-450); RED BLOOD COUNT 4.35 10^6/uL (3.72-5.28); RED CELL DISTRIBUTION WIDTH 13.1 % (11.5-14.0); TOTAL CELLS COUNTED % (AUTO) 100 %; WHITE BLOOD COUNT 6.8 10^3/uL (4.0-10.5)
[2019-02-10 04:52] LABS: ANION GAP 7 (5-19); BLOOD UREA NITROGEN 10 mg/dL (7-20); CALCIUM 9.1 mg/dL (8.4-10.2); CARBON DIOXIDE 27 mmol/L (22-30); CHLORIDE 107 mmol/L (98-107); GLUCOSE 82 mg/dL (75-110)
[2019-02-10] MEDS ORDERED: VANCOMYCIN HCL INJ 1000 MG VIAL IV PRN (05:55)
[2019-02-10] MEDS ORDERED: NALBUPHINE HCL INJ 10 MG/1 ML AMPULE INJ PRN (05:57)
[2019-02-10] MEDS ORDERED: VANCOMYCIN HCL 0 MG in DEXTROSE 5%-WATER 250 ML IV NR (06:00)
[2019-02-10] MEDS ORDERED: CEFTRIAXONE 1 GM/D5W RTU 1 GM/50 ML RTUPB IV ONE (06:00)
--- NOTE | 2019-02-10 06:05 | PDOC H&P ---
History of Present Illness Admission Date/PCP: 02/09/19 22:50 Patient complains of: Left hand pain History of Present Illness: DRAKE JOEL is a 48 year old female with a past medical history of bipolar, persistent polysubstance IV drug use, and tobacco dependence. She presents with 10 days of swelling and pain to her left hand developing worsening pain she presents to the emergency room where she is found to have fluctuance and tracking the arm. She is started on IV vancomycin and seen by orthopedic surgery performing bedside I&D. Patient is found agitated, diaphoretic, tearful complaining of intolerable hand, abdominal pain and insists on leaving for a cigarette. She denies history of MRSA but is otherwise uncooperative with exam. Past Medical History Cardiac Medical History: Denies: Coronary Artery Disease, DVT, Hyperlipidema, Hypertension, Pulmonary Embolism Pulmonary Medical History: Denies: Asthma, Chronic Obstructive Pulmonary Disease (COPD) Neurological Medical History: Denies: Seizures Endocrine Medical History: Denies: Diabetes Mellitus Type 1, Hyperthyroidism, Hypothyroidism GI Medical History: Denies: Cirrhosis, Hepatitis Musculoskeltal Medical History: Denies: Gout Skin Medical History: Denies: Eczema, Psoriasis Psychiatric Medical History: Reports: Bipolar Disorder, Substance Abuse, Tobacco Dependency Hematology: Denies: Anemia, Bleeding Tendencies Past Surgical History Past Surgical History: Reports: Orthopedic Surgery - L wrist, Tonsillectomy Social History Smoking Status: Current Every Day Smoker Frequency of Alcohol Use: Occasional Hx Recreational Drug Use: Yes Drugs: Marijuana Hx Prescription Drug Abuse: No Family History Family History: CAD, Malignancy Parental Family History Reviewed: Yes Children Family History Reviewed: Yes Sibling(s) Family History Reviewed.: Yes Medication/Allergy Home Medications: Alprazolam [Xanax 0.5 mg Tablet] 0.5 mg PO TIDP PRN 06/12/18 Oxycodone HCl [Roxicodone] 5 mg PO QIDP PRN 06/12/18 Clindamycin HCl 600 mg PO Q8 #20 capsule 06/16/18 Silver Sulfadiazine [Silvadene 1% Cream 400 gm] 1 applic TP BID jar 06/16/18 Tramadol HCl [Ultram] 50 mg PO Q6HP PRN #20 tablet 06/16/18 Allergies/Adverse Reactions: No Known Allergies Allergy (Verified 02/09/19 15:10) Physical Exam Vital Signs: Temp Pulse Resp BP Pulse Ox 98.5 F 120 H 13 87/59 L 95 02/09/19 15:36 02/09/19 15:36 02/10/19 05:01 02/10/19 05:00 02/10/19 05:01 Intake & Output 02/08/19 02/09/19 02/10/19 11:59 11:59 11:59 Intake Total 30 Balance 30 Weight 63.7 kg General appearance: PRESENT: disheveled, severe distress, thin, well-developed, other - Chronically ill-appearing much older than stated age. ABSENT: cooperative Head exam: PRESENT: atraumatic, normocephalic Eye exam: PRESENT: conjunctiva pink, EOMI, PERRLA. ABSENT: scleral icterus Ear exam: PRESENT: normal external ear exam Mouth exam: PRESENT: moist. ABSENT: laceration Neck exam: ABSENT: carotid bruit, JVD, lymphadenopathy, thyromegaly Respiratory exam: PRESENT: crackles, prolonged expiratory phas, symmetrical, tachypnea. ABSENT: rales, rhonchi, wheezes Cardiovascular exam: PRESENT: +S1, +S2, tachycardia. ABSENT: diastolic murmur, systolic murmur Pulses: PRESENT: normal dorsalis pedis pul Vascular exam: PRESENT: normal capillary refill GI/Abdominal exam: PRESENT: normal bowel sounds, soft. ABSENT: distended, guarding, mass, organolmegaly, rebound, tenderness Rectal exam: PRESENT: deferred Extremities exam: PRESENT: other - Left hand wrapped. All fingers with brisk capillary refill Results Laboratory Results: 02/10/19 04:02 02/10/19 04:02 02/09/19 02/09/19 02/09/19 18:09 18:09 18:09 WBC 7.3 RBC 4.49 Hgb 12.9 Hct 38.3 MCV 85 MCH 28.7 MCHC 33.7 RDW 13.1 Plt Count 379 Seg Neutrophils % 63.9 Sodium 142.6 Potassium 4.0 Chloride 105 Carbon Dioxide 29 Anion Gap 9 BUN 9 Creatinine 0.59 Est GFR ( Amer) > 60 Glucose 105 Lactic Acid 2.0 Calcium 9.6 Total Bilirubin 0.2 AST 26 Alkaline Phosphatase 97 Total Protein 6.8 Albumin 3.7 Urine Color Urine Appearance Urine pH Ur Specific [place] Urine Protein Urine Glucose (UA) Urine Ketones Urine Blood Urine Nitrite Ur Leukocyte Esterase Urine WBC (Auto) Urine RBC (Auto) 02/09/19 02/10/19 02/10/19 20:43 04:02 04:02 WBC 6.8 RBC 4.35 Hgb 12.5 Hct 37.0 MCV 85 MCH 28.9 MCHC 33.9 RDW 13.1 Plt Count 346 Seg Neutrophils % 52.0 Sodium 140.9 Potassium 4.0 Chloride 107 Carbon Dioxide 27 Anion Gap 7 BUN 10 Creatinine 0.52 Est GFR ( Amer) > 60 Glucose 82 Lactic Acid Calcium 9.1 Total Bilirubin AST Alkaline Phosphatase Total Protein Albumin Urine Color YELLOW Urine Appearance SLIGHTLY-CLOUDY Urine pH 5.0 Ur Specific [place] 1.018 Urine Protein NEGATIVE Urine Glucose (UA) NEGATIVE Urine Ketones NEGATIVE Urine Blood NEGATIVE Urine Nitrite NEGATIVE Ur Leukocyte Esterase NEGATIVE Urine WBC (Auto) 1 Urine RBC (Auto) 1 Impressions: Hand X-Ray 02/09/19 16:02 IMPRESSION: Soft tissue swelling. No osseous abnormality. Assessment and Plan - Diagnosis (1) Abscess of left hand Is this a current diagnosis for this admission?: Yes Plan: Postop day 0 I&D, no history of MRSA but coverage with vancomycin given high risk. Symptomatic management, follow-up blood culture and orthopedic surgery follow-up. (2) Bipolar affective Is this a current diagnosis for this admission?: Yes Plan: Initial Haldol dose for risk of AMA. Zyprexa scheduled twice daily (3) Polysubstance abuse Is this a current diagnosis for this admission?: Yes Plan: Appears in opiate withdrawal, Nubain scheduled, low-dose p.o. Dilaudid as needed. (4) Tobacco use disorder, severe, dependence Is this a current diagnosis for this admission?: Yes Plan: Patient unreceptive to tobacco cessation counseling, nicotine replacement ordered. - Time Time Spent with patient: 25-34 minutes - Inpatient Certification Medical Necessity: Need Close Monitoring Due to Risk of Patient Decompensation
[2019-02-10] MEDS ORDERED: NALBUPHINE HCL INJ 10 MG/1 ML AMPULE IM PRN (06:40)
[2019-02-10] MEDS: HEPARIN SOD (PORCINE) 5,000 UNIT/ML 1 ML VIAL SUBCUT SCH ×3 (07:00→21:38)
[2019-02-10] MEDS: OLANZAPINE 5 MG TABLET PO SCH ×2 (07:02→18:48)
[2019-02-10] MEDS ORDERED: VANCOMYCIN HCL 1,000 MG in DEXTROSE 5%-WATER 250 ML IV ONE (08:00)
[2019-02-10] MEDS: IPRATROPIUM/ALBUTEROL 0.5-2.5 MG/3 ML AMPUL NEB SCH ×2 (08:24→21:32)
[2019-02-10] MEDS ORDERED: NICOTINE 7 MG/24 HR PATCH.TD24 TD SCH (10:00)
[2019-02-10] MEDS: VANCOMYCIN HCL 750 MG in DEXTROSE 5%-WATER 250 ML IV SCH ×2 (10:45→18:47)
[2019-02-10] MEDS: DOCUSATE SODIUM 100 MG CAPSULE PO SCH ×2 (11:55→18:35)
--- NOTE | 2019-02-10 15:45 | PDOC PROGRESS REPORT ---
Subjective Progress Note for:: 02/10/19 Subjective:: This is a 48 year old female with a past medical history of bipolar, persistent polysubstance IV drug use, and tobacco dependence who presented with progressive swelling and pain of the left hand. Patient was noted to have a left hand abscess and underwent I&D by orthopedic surgeon. Upon encounter this morning, she says she still has pain on the left hand but it has improved from yesterday. No fever or chills. Reason For Visit: HAND CELLULITIS IVDU Physical Exam Vital Signs: Temp Pulse Resp BP Pulse Ox 98.5 F 120 H 12 103/79 95 02/09/19 15:36 02/09/19 15:36 02/10/19 06:01 02/10/19 06:00 02/10/19 06:01 Intake & Output 02/09/19 02/10/19 02/11/19 06:59 06:59 06:59 Intake Total 30 Balance 30 Weight 140 lb 6.951 oz General appearance: PRESENT: no acute distress, well-developed, well-nourished Head exam: PRESENT: atraumatic, normocephalic Eye exam: PRESENT: conjunctiva pink, EOMI, PERRLA. ABSENT: scleral icterus Ear exam: PRESENT: normal external ear exam Mouth exam: PRESENT: moist, tongue midline Neck exam: ABSENT: carotid bruit, JVD, lymphadenopathy, thyromegaly Respiratory exam: PRESENT: clear to auscultation eladio. ABSENT: rales, rhonchi, wheezes Cardiovascular exam: PRESENT: RRR. ABSENT: diastolic murmur, rubs, systolic murmur Pulses: PRESENT: normal dorsalis pedis pul GI/Abdominal exam: PRESENT: normal bowel sounds, soft. ABSENT: distended, guarding, mass, organolmegaly, rebound, tenderness Rectal exam: PRESENT: deferred Extremities exam: PRESENT: full ROM. ABSENT: calf tenderness, clubbing, pedal edema Musculoskeletal exam: PRESENT: other - Dressing on left hand Neurological exam: PRESENT: alert, awake, oriented to person, oriented to place, oriented to time, oriented to situation, CN II-XII grossly intact. ABSENT: motor sensory deficit Results Laboratory Results: 02/10/19 04:02 02/10/19 04:02 02/09/19 02/09/19 02/09/19 18:09 18:09 18:09 WBC 7.3 RBC 4.49 Hgb 12.9 Hct 38.3 MCV 85 MCH 28.7 MCHC 33.7 RDW 13.1 Plt Count 379 Seg Neutrophils % 63.9 Sodium 142.6 Potassium 4.0 Chloride 105 Carbon Dioxide 29 Anion Gap 9 BUN 9 Creatinine 0.59 Est GFR ( Amer) > 60 Glucose 105 Lactic Acid 2.0 Calcium 9.6 Total Bilirubin 0.2 AST 26 Alkaline Phosphatase 97 Total Protein 6.8 Albumin 3.7 Urine Color Urine Appearance Urine pH Ur Specific [place] Urine Protein Urine Glucose (UA) Urine Ketones Urine Blood Urine Nitrite Ur Leukocyte Esterase Urine WBC (Auto) Urine RBC (Auto) 02/09/19 02/10/19 02/10/19 20:43 04:02 04:02 WBC 6.8 RBC 4.35 Hgb 12.5 Hct 37.0 MCV 85 MCH 28.9 MCHC 33.9 RDW 13.1 Plt Count 346 Seg Neutrophils % 52.0 Sodium 140.9 Potassium 4.0 Chloride 107 Carbon Dioxide 27 Anion Gap 7 BUN 10 Creatinine 0.52 Est GFR ( Amer) > 60 Glucose 82 Lactic Acid Calcium 9.1 Total Bilirubin AST Alkaline Phosphatase Total Protein Albumin Urine Color YELLOW Urine Appearance SLIGHTLY-CLOUDY Urine pH 5.0 Ur Specific [place] 1.018 Urine Protein NEGATIVE Urine Glucose (UA) NEGATIVE Urine Ketones NEGATIVE Urine Blood NEGATIVE Urine Nitrite NEGATIVE Ur Leukocyte Esterase NEGATIVE Urine WBC (Auto) 1 Urine RBC (Auto) 1 Impressions: Hand X-Ray 02/09/19 16:02 IMPRESSION: Soft tissue swelling. No osseous abnormality. Assessment and Plan - Diagnosis (1) Abscess of left hand Is this a current diagnosis for this admission?: Yes Plan: S/P I&D by ortho. Cultures pending. Continue IV antibiotics. (2) Polysubstance abuse Is this a current diagnosis for this admission?: Yes Plan: Counseled on cessation. (3) Bipolar affective Is this a current diagnosis for this admission?: Yes
--- NOTE | 2019-02-10 18:46 | PDOC PROGRESS REPORT ---
Subjective Subjective:: Seen and examined this afternoon around 3:30 PM. She is doing much better than last night, with symptoms and pain improved. She appears less anxious which may be associated with some resolution of withdrawal symptoms. Reason For Visit: HAND CELLULITIS IVDU Physical Exam Vital Signs: Temp Pulse Resp BP Pulse Ox 98.5 F 120 H 12 103/79 95 02/09/19 15:36 02/09/19 15:36 02/10/19 06:01 02/10/19 06:00 02/10/19 06:01 Intake & Output 02/09/19 02/10/19 02/11/19 06:59 06:59 06:59 Intake Total 30 Balance 30 Weight 63.7 kg Physical Exam: My normal PE general appearance: PRESENT: Minimal distress, sickly appearing consistent with chronic illicit drug use. Poor dentition Head exam: PRESENT: atraumatic, normocephalic Eye exam: PRESENT: EOMI, Her left pupil is constricted in comparison to the right and injected. She explains that this is been ongoing for some time and she has a outside physician who has cleared this for infection Ear exam: PRESENT: normal external ear exam Mouth exam: PRESENT: neck supple, Poor dentition Neck exam: ABSENT: tracheal deviation Respiratory exam: PRESENT: symmetrical, unlabored. ABSENT: accessory muscle us e, wheezes Pulses: PRESENT: normal radial pulses, normal dorsalis pedis pul Vascular exam: PRESENT: normal capillary refill GI/Abdominal exam: ABSENT: distended, firm Extremities exam: PRESENT: full ROM Musculoskeletal exam: PRESENT: Focused physical exam of the left hand demonstrates much improvement of erythema and swelling, the mass of fluctuance about 2 x 3 cm, is decompressed and macerated but appears much improved. Otherwise the hand is grossly sensation and motor intact capillary refill is less than 2 seconds. Range of motion of the hand is limited due to pain and swelling. Neurological exam: PRESENT: alert, awake, oriented to person, oriented to place, oriented to time Psychiatric exam: PRESENT: Hysterical, agitated Focused psych exam: She seems to be going through withdrawal symptoms and is hysterical about the potential for surgery. I had a long discussion with her regarding treatment plan and she eventually requested intervention in the emergency department Skin exam: PRESENT: intact. ABSENT: dry General appearance: PRESENT: disheveled, mild distress, thin Results Laboratory Results: 02/10/19 04:02 02/10/19 04:02 02/09/19 02/09/19 02/09/19 18:09 18:09 18:09 WBC 7.3 RBC 4.49 Hgb 12.9 Hct 38.3 MCV 85 MCH 28.7 MCHC 33.7 RDW 13.1 Plt Count 379 Seg Neutrophils % 63.9 Sodium 142.6 Potassium 4.0 Chloride 105 Carbon Dioxide 29 Anion Gap 9 BUN 9 Creatinine 0.59 Est GFR ( Amer) > 60 Glucose 105 Lactic Acid 2.0 Calcium 9.6 Total Bilirubin 0.2 AST 26 Alkaline Phosphatase 97 Total Protein 6.8 Albumin 3.7 Urine Color Urine Appearance Urine pH Ur Specific [place] Urine Protein Urine Glucose (UA) Urine Ketones Urine Blood Urine Nitrite Ur Leukocyte Esterase Urine WBC (Auto) Urine RBC (Auto) 02/09/19 02/10/19 02/10/19 20:43 04:02 04:02 WBC 6.8 RBC 4.35 Hgb 12.5 Hct 37.0 MCV 85 MCH 28.9 MCHC 33.9 RDW 13.1 Plt Count 346 Seg Neutrophils % 52.0 Sodium 140.9 Potassium 4.0 Chloride 107 Carbon Dioxide 27 Anion Gap 7 BUN 10 Creatinine 0.52 Est GFR ( Amer) > 60 Glucose 82 Lactic Acid Calcium 9.1 Total Bilirubin AST Alkaline Phosphatase Total Protein Albumin Urine Color YELLOW Urine Appearance SLIGHTLY-CLOUDY Urine pH 5.0 Ur Specific [place] 1.018 Urine Protein NEGATIVE Urine Glucose (UA) NEGATIVE Urine Ketones NEGATIVE Urine Blood NEGATIVE Urine Nitrite NEGATIVE Ur Leukocyte Esterase NEGATIVE Urine WBC (Auto) 1 Urine RBC (Auto) 1 Impressions: Hand X-Ray 02/09/19 16:02 IMPRESSION: Soft tissue swelling. No osseous abnormality. Assessment & Plan - Diagnosis (1) Abscess of left hand Is this a current diagnosis for this admission?: Yes Plan: - S/P I&D Day 1. Much improved. - Will continue IV ABX per medicine - Dressing changed today - Packing in place, will pull tomorrow - Follow cultures. (2) Polysubstance abuse Is this a current diagnosis for this admission?: Yes (3) Chronic pain disorder Is this a current diagnosis for this admission?: Yes
[2019-02-10] MEDS: KETOROLAC TROMETHAMINE INJ/PF 30 MG/1 ML SDV IV PRN (18:59)
[2019-02-11] MEDS: NICOTINE 7 MG/24 HR PATCH.TD24 TD SCH ×2 (00:25→21:36)
[2019-02-11] MEDS: VANCOMYCIN HCL 750 MG in DEXTROSE 5%-WATER 250 ML IV SCH ×3 (03:42→17:12)
[2019-02-11] MEDS: HEPARIN SOD (PORCINE) 5,000 UNIT/ML 1 ML VIAL SUBCUT SCH ×3 (05:41→21:36)
[2019-02-11] MEDS: OLANZAPINE 5 MG TABLET PO SCH ×2 (07:34→17:12)
[2019-02-11] MEDS: CEFTRIAXONE 1 GM/D5W RTU 1 GM/50 ML RTUPB IV SCH (07:43)
[2019-02-11] MEDS: IPRATROPIUM/ALBUTEROL 0.5-2.5 MG/3 ML AMPUL NEB SCH (08:03)
[2019-02-11] MEDS: DOCUSATE SODIUM 100 MG CAPSULE PO SCH ×2 (09:59→17:10)
[2019-02-11 10:12] LABS: VANCOMYCIN,TROUGH 11.5 ug/mL (5.0-20.0)
--- NOTE | 2019-02-11 12:27 | PDOC PROGRESS REPORT ---
Subjective Progress Note for:: 02/11/19 Subjective:: This is a 48 year old female with a past medical history of bipolar, persistent polysubstance IV drug use, and tobacco dependence who presented with progressive swelling and pain of the left hand. Patient was noted to have a left hand abscess and underwent I&D by orthopedic surgeon. 02/10: Upon encounter this morning, she says she still has pain on the left hand but it has improved from yesterday. 02/11: No acute event overnight. She says pain is slightly better today. No fever or chills. Wound cultures pending. Reason For Visit: HAND CELLULITIS IVDU Physical Exam Vital Signs: Temp Pulse Resp BP Pulse Ox 98 F 90 16 117/73 98 02/11/19 11:42 02/11/19 11:42 02/11/19 11:42 02/11/19 11:42 02/11/19 11:42 Intake & Output 02/10/19 02/11/19 02/12/19 06:59 06:59 06:59 Intake Total 30 1230 50 Balance 30 1230 50 Weight 140 lb 6.951 oz 142 lb 3.17 oz General appearance: PRESENT: no acute distress, well-developed, well-nourished Head exam: PRESENT: atraumatic, normocephalic Eye exam: PRESENT: conjunctiva pink, EOMI, PERRLA. ABSENT: scleral icterus Ear exam: PRESENT: normal external ear exam Mouth exam: PRESENT: moist, tongue midline Neck exam: ABSENT: carotid bruit, JVD, lymphadenopathy, thyromegaly Respiratory exam: PRESENT: clear to auscultation eladio. ABSENT: rales, rhonchi, wheezes Cardiovascular exam: PRESENT: RRR. ABSENT: diastolic murmur, rubs, systolic murmur Pulses: PRESENT: normal dorsalis pedis pul GI/Abdominal exam: PRESENT: normal bowel sounds, soft. ABSENT: distended, guarding, mass, organolmegaly, rebound, tenderness Rectal exam: PRESENT: deferred Extremities exam: PRESENT: other - dressing on left hand Neurological exam: PRESENT: alert, awake, oriented to person, oriented to place, oriented to time, oriented to situation, CN II-XII grossly intact. ABSENT: motor sensory deficit Results Laboratory Results: 02/10/19 04:02 02/11/19 09:44 02/11/19 09:44 Creatinine 0.56 Est GFR ( Amer) > 60 Impressions: Hand X-Ray 02/09/19 16:02 IMPRESSION: Soft tissue swelling. No osseous abnormality. Assessment and Plan - Diagnosis (1) Abscess of left hand Is this a current diagnosis for this admission?: Yes Plan: S/P I&D by ortho. Cultures pending. Continue IV antibiotics. (2) Polysubstance abuse Is this a current diagnosis for this admission?: Yes Plan: Counseled on cessation. (3) Bipolar affective Is this a current diagnosis for this admission?: Yes Plan: Stable.
[2019-02-11] MEDS: HYDROMORPHONE HCL 2 MG TABLET PO PRN ×3 (12:37→21:35)
[2019-02-12] MEDS: VANCOMYCIN HCL 750 MG in DEXTROSE 5%-WATER 250 ML IV SCH ×2 (02:05→09:43)
[2019-02-12] MEDS: HEPARIN SOD (PORCINE) 5,000 UNIT/ML 1 ML VIAL SUBCUT SCH ×3 (05:02→21:38)
[2019-02-12] MEDS: OLANZAPINE 5 MG TABLET PO SCH ×2 (05:44→17:05)
[2019-02-12] MEDS: HYDROMORPHONE HCL 2 MG TABLET PO PRN ×4 (05:44→20:33)
[2019-02-12] MEDS: CEFTRIAXONE 1 GM/D5W RTU 1 GM/50 ML RTUPB IV SCH (07:36)
[2019-02-12] MEDS: DOCUSATE SODIUM 100 MG CAPSULE PO SCH ×2 (09:40→17:04)
--- NOTE | 2019-02-12 10:20 | PDOC PROGRESS REPORT ---
Subjective Progress Note for:: 02/11/19 Subjective:: No acute changes. Patient appears and acts much more comfortable and pleasant. All questions answered. No new symptoms. Reason For Visit: HAND CELLULITIS IVDU Physical Exam Vital Signs: Temp Pulse Resp BP Pulse Ox 98.2 F 90 16 102/59 L 97 02/12/19 08:15 02/12/19 08:15 02/12/19 08:15 02/12/19 08:15 02/12/19 08:15 Intake & Output 02/11/19 02/12/19 02/13/19 06:59 06:59 06:59 Intake Total 1230 2394 50 Balance 1230 2394 50 Weight 64.5 kg 64.2 kg Physical Exam: Musculoskeletal exam: PRESENT: Focused physical exam of the left hand demonstrates much improvement of erythema and swelling, the mass of fluctuance about 2 x 3 cm, is decompressed and macerated but appears much improved. A layer of skin has sloughed. Otherwise the hand is grossly sensation and motor intact capillary refill is less than 2 seconds. Range of motion of the hand is limited due to pain and swelling. Neurological exam: PRESENT: alert, awake, oriented to person, oriented to place, oriented to time Psychiatric exam: PRESENT: Pleasant, restful. Results Laboratory Results: 02/10/19 04:02 02/11/19 09:44 02/09/19 23:14 Hand - Left Gram Stain - Final Impressions: Hand X-Ray 02/09/19 16:02 IMPRESSION: Soft tissue swelling. No osseous abnormality. Assessment & Plan - Diagnosis (1) Abscess of left hand Is this a current diagnosis for this admission?: Yes Plan: - Dressing changed and packing removed. - When final cultures complete, consider discharging on appropriate antibiotics. Hopefully there will be a PO option to avoid PICC given her drug history. - She should see me in the clinic 7-10 days after discharge, until that time she should keep the hand clean and dry, and change her dressing as needed. (2) Polysubstance abuse Is this a current diagnosis for this admission?: Yes (3) Chronic pain disorder Is this a current diagnosis for this admission?: Yes
--- NOTE | 2019-02-12 13:01 | PDOC PROGRESS REPORT ---
Subjective Progress Note for:: 02/12/19 Subjective:: This is a 48 year old female with a past medical history of bipolar, persistent polysubstance IV drug use, and tobacco dependence who presented with progressive swelling and pain of the left hand. Patient was noted to have a left hand abscess and underwent I&D by orthopedic surgeon. 02/10: Upon encounter this morning, she says she still has pain on the left hand but it has improved from yesterday. 02/11: She says pain is slightly better today. No fever or chills. Wound cultures pending. 02/12: No acute event overnight. Pain continues to be well-controlled. Wound culture grew MSSA. Switch vancomycin and Zosyn to Ancef today. Anticipate discharge with PO antibiotics tomorrow. Reason For Visit: HAND CELLULITIS IVDU Physical Exam Vital Signs: Temp Pulse Resp BP Pulse Ox 98.5 F 94 16 103/58 L 97 02/12/19 11:53 02/12/19 11:53 02/12/19 08:15 02/12/19 11:53 02/12/19 11:53 Intake & Output 02/11/19 02/12/19 02/13/19 06:59 06:59 06:59 Intake Total 1230 2394 660 Balance 1230 2394 660 Weight 142 lb 3.17 oz 141 lb 8.588 oz General appearance: PRESENT: no acute distress, well-developed, well-nourished Head exam: PRESENT: atraumatic, normocephalic Eye exam: PRESENT: conjunctiva pink, EOMI, PERRLA. ABSENT: scleral icterus Ear exam: PRESENT: normal external ear exam Mouth exam: PRESENT: moist, tongue midline Neck exam: ABSENT: carotid bruit, JVD, lymphadenopathy, thyromegaly Respiratory exam: PRESENT: clear to auscultation eladio. ABSENT: rales, rhonchi, wheezes Cardiovascular exam: PRESENT: RRR. ABSENT: diastolic murmur, rubs, systolic murmur Pulses: PRESENT: normal dorsalis pedis pul GI/Abdominal exam: PRESENT: normal bowel sounds, soft. ABSENT: distended, guarding, mass, organolmegaly, rebound, tenderness Rectal exam: PRESENT: deferred Extremities exam: ABSENT: pedal edema Neurological exam: PRESENT: alert, awake, oriented to person, oriented to place, oriented to time, oriented to situation, CN II-XII grossly intact. ABSENT: motor sensory deficit Results Laboratory Results: 02/10/19 04:02 02/11/19 09:44 02/09/19 23:14 Hand - Left Gram Stain - Final Impressions: Hand X-Ray 02/09/19 16:02 IMPRESSION: Soft tissue swelling. No osseous abnormality. Assessment and Plan - Diagnosis (1) Abscess of left hand Is this a current diagnosis for this admission?: Yes Plan: 02/11: S/P I&D by ortho. Cultures pending. Continue IV antibiotics. 02/12: Wound culture grew MSSA. Switch vancomycin and Zosyn to Ancef today. Anticipate discharge with PO antibiotics tomorrow. (2) Polysubstance abuse Is this a current diagnosis for this admission?: Yes Plan: Counseled on cessation. (3) Bipolar affective Is this a current diagnosis for this admission?: Yes Plan: Stable.
[2019-02-12] MEDS: CEFAZOLIN 1 GM/D5W RTU 1 GM/50 ML RTUPB IV SCH (17:05)
[2019-02-12] MEDS: NICOTINE 7 MG/24 HR PATCH.TD24 TD SCH (21:39)
[2019-02-13] MEDS: HYDROMORPHONE HCL 2 MG TABLET PO PRN ×4 (01:08→16:02)
[2019-02-13] MEDS: CEFAZOLIN 1 GM/D5W RTU 1 GM/50 ML RTUPB IV SCH ×3 (01:09→18:06)
[2019-02-13] MEDS: HEPARIN SOD (PORCINE) 5,000 UNIT/ML 1 ML VIAL SUBCUT SCH ×2 (05:28→16:12)
[2019-02-13] MEDS: OLANZAPINE 5 MG TABLET PO SCH ×2 (05:29→18:08)
[2019-02-13] MEDS: DOCUSATE SODIUM 100 MG CAPSULE PO SCH ×2 (10:48→18:08)
--- NOTE | 2019-02-13 15:22 | PDOC DISCHARGE SUMMARY ---
General - Admit/Disc Date/PCP Admission Date/Primary Care Provider: 02/09/19 22:50 Discharge Date: 02/13/19 - Additional Information Resuscitation Status: Full Code Discharge Diet: As Tolerated Discharge Activity: Activity As Tolerated Prescriptions: Amox Tr/Potassium Clavulanate [Augmentin 875-125 mg Tablet] 1 tab PO BID #14 tablet Home Medications: Acetaminophen [Tylenol 325 mg Tablet] 650 mg PO Q4HP PRN tablet 02/13/19 Amox Tr/Potassium Clavulanate [Augmentin 875-125 mg Tablet] 1 tab PO BID #14 tablet 02/13/19 Nicotine [Nicoderm 7 mg/24 Hr Transdermal Patch] 1 each TD QHS patch.td24 02/13/19 History of Present Illness History of Present Illness: DRAKE JOEL is a 48 year old female with a past medical history of bipolar, persistent polysubstance IV drug use, and tobacco dependence. She presents with 10 days of swelling and pain to her left hand developing worsening pain she presents to the emergency room where she is found to have fluctuance and track ing the arm. She is started on IV vancomycin and seen by orthopedic surgery performing bedside I&D. Patient is found agitated, diaphoretic, tearful complaining of intolerable hand, abdominal pain and insists on leaving for a cigarette. She denies history of MRSA but is otherwise uncooperative with exam. Hospital Course Hospital Course: (1) Abscess of left hand S/P I&D by ortho on 02/09/2019. Cultures positive for MSSA. vancomycin and Zosyn switched to Ancef on 02/12/2019. Patient will be discharged today on oral Augmentin. She knows to follow-up with Ortho within a week. (2) Polysubstance abuse Counseled on cessation. (3) Bipolar affective Stable. Physical Exam Vital Signs: Temp Pulse Resp BP Pulse Ox 98.2 F 93 16 97/49 L 95 02/13/19 08:00 02/13/19 08:00 02/13/19 08:00 02/13/19 08:00 02/13/19 08:00 Intake & Output 02/12/19 02/13/19 02/14/19 06:59 06:59 06:59 Intake Total 2394 1960 600 Balance 2394 1960 600 Weight 141 lb 8.588 oz 145 lb 4.554 oz Exam: Patient is no acute distress Alert oriented to time place person No anxiety or depression Head: atraumatic normocephalic Pupils: are equal reactive Neck: is supple and trachea is central no lymphadenopathy No pharyngeal erythema or exudates Heart: Regular rate and rhythm Lungs: clear no distress Abdomen: nontender nondistended Neurological exam: unremarkable Musculoskeletal: No joint swelling or effusion chronic lower back pain and tenderness No suicidal or homicidal ideation Results Laboratory Results: 02/10/19 04:02 02/11/19 09:44 02/09/19 23:14 Hand - Left Gram Stain - Final 02/09/19 23:14 Hand - Left Wound Culture - Final Staphylococcus Aureus No Anaerobic Organisms Impressions: Hand X-Ray 02/09/19 16:02 IMPRESSION: Soft tissue swelling. No osseous abnormality. Qualifiers - * PATIENT BEING DISCHARGED WITH ANY OF THE FOLLOWING DIAGNOSIS: No Acute Heart Failure - Is this a Heart Failure Patient?: No Plan Time Spent: Greater than 30 Minutes - 35 minutes
[2019-02-13 16:34] VITALS: BP 109/78
--- NOTE | 2019-02-13 17:25 | PDOC PROGRESS REPORT ---
Subjective Progress Note for:: 02/13/19 Subjective:: Continues to report improvement both in the pain and overall general wellness. She feels much better than when she presented. No new symptoms reported. Reason For Visit: HAND CELLULITIS IVDU Physical Exam Vital Signs: Temp Pulse Resp BP Pulse Ox 98.2 F 93 16 102/59 L 95 02/13/19 16:15 02/13/19 16:15 02/13/19 16:15 02/13/19 16:15 02/13/19 16:15 Intake & Output 02/12/19 02/13/19 02/14/19 06:59 06:59 06:59 Intake Total 2394 1960 600 Balance 2394 1960 600 Weight 64.2 kg 65.9 kg Physical Exam: Musculoskeletal exam: PRESENT: Focused physical exam of the left hand demonstrates much improvement of erythema and swelling, there is no further fluctuance, maceration much improved. Erythema nearly completely decreased. There is a 5 x 5 mm wound with fibrinous That is not draining. Attempt to express does not produce any fluid. Otherwise the hand is grossly sensation and motor intact capillary refill is less than 2 seconds. Range of motion of the hand is limited due to pain and swelling. Neurological exam: PRESENT: alert, awake, oriented to person, oriented to place, oriented to time Psychiatric exam: PRESENT: Pleasant, agreeable. Results Laboratory Results: 02/10/19 04:02 02/11/19 09:44 02/09/19 23:14 Hand - Left Gram Stain - Final 02/09/19 23:14 Hand - Left Wound Culture - Final Staphylococcus Aureus No Anaerobic Organisms Impressions: Hand X-Ray 02/09/19 16:02 IMPRESSION: Soft tissue swelling. No osseous abnormality. Assessment & Plan - Diagnosis (1) Abscess of left hand Is this a current diagnosis for this admission?: Yes Plan: The patient is scheduled for discharge today with home course of Augmentin. He has an appointment with me in my office on the . She was instructed on how to change the dressing herself in the interval and demonstrated understanding. The dressing was changed at bedside today to a new sterile dressing I also had a discussion with the patient regarding the risk of substance abuse and the concern that further abuse will weaken her immune system and lead to recurrent infections such as the one she has had. She is to present to the ER or return to my clinic with any severe change in symptoms or onset of fever chills or progressive pain or drainage (2) Polysubstance abuse Is this a current diagnosis for this admission?: Yes (3) Chronic pain disorder Is this a current diagnosis for this admission?: Yes
== END 2019-02-13 17:00 | disposition home or self-care (01) | DRG 603 ==
LOC: ER 15:09 → EH 22:50 → 4S 02-10 15:51
PROVIDERS: ADMIT Internal Medicine; ATTEND Internal Medicine
PROC: 0H9GXZZ Drainage of Left Hand Skin, External Approach (ICD-10-PCS; principal; 2019-02-09)
DX: L02.512 Cutaneous abscess of left hand (principal); F11.23 Opioid dependence with withdrawal; B95.61 Methicillin susceptible Staphylococcus aureus infection as the cause of diseases classified elsewhere; F31.9 Bipolar disorder, unspecified; F17.210 Nicotine dependence, cigarettes, uncomplicated; G89.29 Other chronic pain; F19.10 Other psychoactive substance abuse, uncomplicated
CPT/HCPCS: 36415; 80048; 80053; 80202; 80307; 81001; 82565; 83605; 85025; 87040; 87070; 87075; 87077; 87186; 87205; 96374; 99284; A6266; J0690; J0696; J1170; J1630; J1644; J1885; J2405; J3370; J3490; J7060